=== PATIENT | female | born 1930 | race Caucasian/White ===

== ENCOUNTER → 2016-07-24 | Outpatient (REF) | payer MEDICARE ==
[~2016-07-24] MED LIST: /PANT40TA; /SUCR1TA; /ZOLP6ER; AMBIEN CR; NORV5TAB; PAXI20TA
== END ==
LOC: M LAB REF 12:24
PROVIDERS: ATTEND Nurse Practitioner Family
DX: N76.0 Acute vaginitis (principal)

== ENCOUNTER → 2016-09-03 | Outpatient (REF) | payer MEDICARE ==
[~2016-09-03] MED LIST changes: +AMLO2.5T PO; +PANT40TA2 PO; +PARO20TA3 PO
== END ==
LOC: M SMT 12:56
PROVIDERS: ATTEND Nurse Practitioner Women's Health
DX: R32 Unspecified urinary incontinence (principal)
CPT/HCPCS: 51798; 81001; 87086; G0463

== ENCOUNTER → 2016-10-09 | Outpatient (REF) | payer MEDICARE | LOC: M LAB REF 13:22 | PROVIDERS: ATTEND Nurse Practitioner Adult Health | DX: R30.0 Dysuria (principal) ==

== ENCOUNTER → 2016-10-23 | Outpatient (REF) | payer MEDICARE | LOC: M LAB REF 18:35 | PROVIDERS: ATTEND Nurse Practitioner Adult Health | DX: R30.0 Dysuria (principal); N81.10 Cystocele, unspecified ==

== ENCOUNTER → 2016-11-03 | Outpatient (REF) | payer MEDICARE | LOC: M SMT 15:20 | PROVIDERS: ATTEND Urology | DX: N39.0 Urinary tract infection, site not specified (principal); R82.8 Abnormal findings on cytological and histological examination of urine; R35.0 Frequency of micturition | CPT/HCPCS: 87086; G0463 ==

== ENCOUNTER → 2016-12-09 | Outpatient (CLI) | payer MEDICARE ==
[2016-12-09 10:37] LABS: MEAN CORPUSCULAR HEMOGLOBIN 31.9 pg (27.0-33.0); MEAN CORPUSCULAR HGB CONC 32.9 g/dl (32.0-36.5); MEAN CORPUSCULAR VOLUME 97.1 fl (80.0-96.0); RED CELL DISTRIBUTION WIDTH 13.7 % (11.5-14.5); WHITE BLOOD COUNT 7.2 10^3/uL (4.0-10.0)
--- NOTE | 2016-12-09 10:48 | REP ---
Chest two views HISTORY: Bladder tumor Comparison: 07/02/2011 The lungs are clear. The heart is normal in size. The pulmonary vasculature is normal in appearance. The bony structure is intact. IMPRESSION: No acute disease. Signed by Gopal Khan MD 12/09/2016 10:39 A
[2016-12-09 10:55] LABS: INR 1.02
[2016-12-09 11:10] LABS: CALCIUM LEVEL 9.6 MG/DL (8.8-10.2); CREATININE FOR GFR 1.17 MG/DL (0.55-1.02); GLOMERULAR FILTRATION RATE 46.7 (>32); POTASSIUM SERUM 4.3 MEQ/L (3.5-5.1)
--- NOTE | 2016-12-10 16:10 | ECGEPIP ---
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 Electronically Signed On 12-10-2016 16:10:19 EDT by Beto Avery
== END ==
LOC: M LAB 09:38
PROVIDERS: ATTEND Urology
DX: D49.4 Neoplasm of unspecified behavior of bladder (principal); Z79.899 Other long term (current) drug therapy; Z01.818 Encounter for other preprocedural examination; R00.1 Bradycardia, unspecified

== ENCOUNTER → 2016-12-11 | Outpatient (REF) | payer MEDICARE | LOC: M SMT 12:52 | PROVIDERS: ATTEND Urology | DX: N39.0 Urinary tract infection, site not specified (principal) ==

== ENCOUNTER 2016-12-15 05:41 | Day surgery (SDC) | payer MEDICARE ==
[~2016-12-15] VITALS: Ht 152.4 cm; Wt 55.8 kg
[2016-12-15] MEDS ORDERED: LR 1,000 ML IV ONE (06:30)
[2016-12-15] MEDS ORDERED: LIDOCAINE 1% MDV 20ML VIAL SQ PRN (06:30)
[2016-12-15] MEDS ORDERED: PROPOFOL 200 MG/20 ML VIAL As Ordered ONE (07:43)
[2016-12-15] MEDS ORDERED: fentaNYL 100 MCG/2 ML INJECTION (J3010) As Ordered ONE (07:43)
[2016-12-15] MEDS ORDERED: LIDOCAINE 2% INJ 100 MG/5 ML SDV (FOR ANES.) As Ordered ONE (07:43)
[2016-12-15] MEDS ORDERED: ROCURONIUM BROMIDE 50 MG/5 ML VIAL/SYRINGE As Ordered ONE (07:43)
[2016-12-15] MEDS ORDERED: ePHEDrine SULFATE 25 MG/5 ML(5MG/ML) SYRINGE As Ordered ONE (07:44)
[2016-12-15] MEDS ORDERED: SUGAMMADEX SODIUM 500 MG/5 ML VIAL (BRIDION) As Ordered ONE (07:56)
--- NOTE | 2016-12-15 08:21 | RO ---
DATE OF PROCEDURE: 12/15/2016 PREPROCEDURE DIAGNOSIS: Bladder tumor. POSTPROCEDURE DIAGNOSIS: Bladder tumor. PROCEDURE: Cystoscopy, transurethral resection of bladder tumor (less than 2 cm). SURGEON: Dr. 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 ANESTHESIA: General. OPERATIVE INDICATIONS: This is an 86-year-old female who was recently found to have a small papillary tumor right above the level of the right ureteral orifice on office cystoscopy. It was recommended she be brought to the operating room today for the above listed procedures. DESCRIPTION OF PROCEDURE: The patient was brought to the operating room where general anesthesia was induced. Prophylactic antibiotics were infused. She was then placed in the dorsal lithotomy position and a bimanual pelvic examination under anesthesia was performed. It was negative for palpable bladder masses. The bladder was freely mobile. The patient was then prepped and draped in the usual sterile fashion. A rigid cystoscope was inserted into the urethral meatus and advanced to the bladder. The bladder was then thoroughly examined. The only abnormality seen was a small papillary tumor right over the right ureteral orifice. The cystoscope was then traded out for a resectoscope. I then resected the bladder tumor and made sure to get cuts deep enough into the bladder wall to contain muscle. The tumor was then removed and sent off the table and sent for pathologic analysis. I then cauterized the area of resection and there was good hemostasis obtained. I then examined the right ureteral orifice for several minutes and the right ureteral orifice continued to efflux urine normally. I therefore decided not to place a stent. The patient's bladder was then emptied of all fluid and this marked the conclusion of the procedure. The patient was then taken out of dorsal lithotomy position, awakened from anesthesia and transported to the recovery room in stable condition. Estimated blood loss: 0 mL. Complications: None. Specimen: Bladder tumor. Plan: The patient will follow up in the clinic in about one week to go over pathology results.
[2016-12-15] MEDS ORDERED: PERCOCET 5MG/325MG TAB PO PRN (08:30)
[2016-12-15] MEDS ORDERED: MEPERIDINE INJ 25 MG/ML VIAL (J2175) IV PRN (08:30)
[2016-12-15] MEDS ORDERED: ACETAMINOPHEN TAB 650MG DOSE (2X325MG) PO PRN (08:30)
[2016-12-15] MEDS ORDERED: ONDANSETRON 4MG/2ML VIAL (J2405) IV PRN (08:30)
[2016-12-15] MEDS ORDERED: METOCLOPRAMIDE INJ 10MG/2ML VIAL (J2765) IV PRN (08:30)
[2016-12-15] MEDS ORDERED: fentaNYL 100 MCG/2 ML INJECTION (J3010) IV PRN (08:30)
[2016-12-15] MEDS ORDERED: LR 1,000 ML IV SCH (08:30)
[2016-12-15 09:25] VITALS: BP 179/79
== END 2016-12-15 09:50 | disposition home or self-care (01) ==
LOC: M SDC 05:41
PROVIDERS: ATTEND Urology
DX: C67.9 Malignant neoplasm of bladder, unspecified (principal); I12.9 Hypertensive chronic kidney disease with stage 1 through stage 4 chronic kidney disease, or unspecified chronic kidney disease; K21.9 Gastro-esophageal reflux disease without esophagitis; F32.9 Major depressive disorder, single episode, unspecified; M81.0 Age-related osteoporosis without current pathological fracture; K57.30 Diverticulosis of large intestine without perforation or abscess without bleeding; N18.3 Chronic kidney disease, stage 3 (moderate); E78.00 Pure hypercholesterolemia, unspecified; E55.9 Vitamin D deficiency, unspecified; E64.9 Sequelae of unspecified nutritional deficiency; I44.30 Unspecified atrioventricular block; G25.81 Restless legs syndrome; Z88.8 Allergy status to other drugs, medicaments and biological substances; Z79.899 Other long term (current) drug therapy; Z86.14 Personal history of Methicillin resistant Staphylococcus aureus infection; Z87.891 Personal history of nicotine dependence
CPT/HCPCS: 52234; 88305; J3010

== ENCOUNTER → 2017-03-24 | Outpatient (REF) | payer MEDICARE | LOC: M SMT 12:44 | DX: C67.9 Malignant neoplasm of bladder, unspecified (principal) | CPT/HCPCS: 88108 ==

== ENCOUNTER → 2017-05-29 | Outpatient (REF) | payer MEDICARE ==
[2017-05-29 12:36] LABS: AMYLASE 73 U/L (25-115)
[2017-05-29 12:36] LABS: LIPASE 238 U/L (73-393)
== END ==
LOC: M LAB REF 11:59
DX: R10.13 Epigastric pain (principal); R10.12 Left upper quadrant pain

== ENCOUNTER → 2017-06-23 | Outpatient (REF) | payer MEDICARE | LOC: M SMT 13:15 | DX: C67.9 Malignant neoplasm of bladder, unspecified (principal) | CPT/HCPCS: 88108 ==

== ENCOUNTER → 2017-10-27 | Outpatient (REF) | payer MEDICARE | LOC: M SMT 17:21 | DX: C67.9 Malignant neoplasm of bladder, unspecified (principal) | CPT/HCPCS: 88108 ==

== ENCOUNTER → 2017-11-03 | Outpatient (CLI) | payer MEDICARE | LOC: M LRY 09:58 | DX: M50.322 Other cervical disc degeneration at C5-C6 level (principal); M50.323 Other cervical disc degeneration at C6-C7 level | CPT/HCPCS: G0463 ==

== ENCOUNTER → 2017-11-12 | Outpatient (CLI) | payer MEDICARE | LOC: M RAD 10:29 | DX: M50.221 Other cervical disc displacement at C4-C5 level (principal); M50.21 Other cervical disc displacement, high cervical region; M50.222 Other cervical disc displacement at C5-C6 level; M50.223 Other cervical disc displacement at C6-C7 level; M47.812 Spondylosis without myelopathy or radiculopathy, cervical region | CPT/HCPCS: 72141 ==

== ENCOUNTER → 2018-02-02 | Outpatient (REF) | payer MEDICARE ==
[2018-02-03 15:16] LABS: FERRITIN 136 NG/ML (8-252); IRON (FE) 59 UG/DL (50-170); PERCENT SATURATION 18.8 % (13.2-45.0); TOTAL IRON BINDING CAPACITY 314 UG/DL (250-450)
== END ==
LOC: M LAB REF 12:09
DX: N18.9 Chronic kidney disease, unspecified (principal); D63.1 Anemia in chronic kidney disease
CPT/HCPCS: 83550

== ENCOUNTER → 2018-05-03 | Outpatient (REF) | payer MEDICARE ==
[~2018-05-03] MED LIST changes: -AMLO2.5T PO; +AMLO2.5T3 PO; -PANT40TA2 PO; +PANT40TA3 PO
== END ==
LOC: M SMT 13:01
PROVIDERS: ATTEND Urology
DX: C67.9 Malignant neoplasm of bladder, unspecified (principal)

== ENCOUNTER → 2018-05-05 | Outpatient (CLI) | payer MEDICARE ==
[~2018-05-05] MED LIST changes: +ISOVUE-370 76% 100ML VIAL (Q9967) As Ordered ONE
--- NOTE | 2018-05-05 09:55 | REP ---
CT NECK WITH CONTRAST: HISTORY: Right mandible mass. CONTRAST: Isovue 370, 75 mL. The naso-, ayesha-, and hypopharynx, larynx and subglottic trachea are normal in appearance. The salivary and thyroid glands are normal in size and density. Small lymph nodes less than 1 cm in size are present in the internal jugular chains, posterior triangles and submandibular areas. Atherosclerotic calcification is present at the carotid bifurcations. Degenerative change is present in the cervical spine. The lung apices are clear. The visualized sinuses are clear. IMPRESSION: There is no neck mass or adenopathy. Electronically Signed by Gopal Khan MD 05/05/2018 09:56 A
== END ==
LOC: M RAD 08:46
PROVIDERS: ATTEND Nurse Practitioner Adult Health
DX: R22.0 Localized swelling, mass and lump, head (principal)
CPT/HCPCS: 70491; Q9967

== ENCOUNTER → 2018-11-01 | Outpatient (REF) | payer MEDICARE ==
[~2018-11-01] MED LIST changes: -/PANT40TA; -/SUCR1TA; -ISOVUE-370 76% 100ML VIAL (Q9967) As Ordered ONE; +PROT1TAB2; +SUCR1TAB56
== END ==
LOC: M SMT 13:10
PROVIDERS: ATTEND Urology
DX: C67.9 Malignant neoplasm of bladder, unspecified (principal)

== ENCOUNTER → 2019-01-27 | Outpatient (REF) | payer MEDICARE | LOC: M LAB REF 17:38 | PROVIDERS: ATTEND Nurse Practitioner Adult Health | DX: R30.0 Dysuria (principal) ==

== ENCOUNTER → 2019-08-10 | Outpatient (REF) | payer MEDICARE | LOC: M LAB REF 17:05 | PROVIDERS: ATTEND Nurse Practitioner Adult Health | DX: N18.9 Chronic kidney disease, unspecified (principal); D63.1 Anemia in chronic kidney disease ==

== ENCOUNTER → 2019-11-14 | Outpatient (REF) | payer MEDICARE ==
[~2019-11-14] MED LIST changes: +AMLO1TAB24 PO; +AMLO1TAB25 PO; +ASPI81CH33 PO; +ASPI81TAEC PO; +CLOP75TA2 PO; +PANT40TA29 PO; -PANT40TA3 PO; +SELF1KIT MC; +SIMV20TA22 PO
== END ==
LOC: M SMT 12:51
PROVIDERS: ATTEND Urology
DX: C67.9 Malignant neoplasm of bladder, unspecified (principal)

== ENCOUNTER 2019-12-20 11:19 | Inpatient (IN) | payer MEDICARE ==
[~2019-12-20] VITALS: Ht 152.4 cm; Wt 62.6 kg
[~2019-12-20 11:19] MED LIST changes: -AMLO1TAB24 PO; -AMLO1TAB25 PO; -ASPI81CH33 PO; -ASPI81TAEC PO; -CLOP75TA2 PO; -SELF1KIT MC; -SIMV20TA22 PO
--- NOTE | 2019-12-20 11:48 | REP ---
INDICATION: CVA. COMPARISON: Comparison chest x-ray December 09, 2016.. TECHNIQUE: Upright AP portable view. FINDINGS: The lungs are well inflated and clear. Pleural angles are sharp. Heart is not enlarged. The aorta is calcific and somewhat tortuous. Pulmonary vasculature is not increased. No significant bony abnormality. IMPRESSION: No active disease. <Electronically signed by Bassem Christianson > 12/20/19 [id number]
--- NOTE | 2019-12-20 11:58 | REP ---
INDICATION: CVA - Nursing interventions must not delay CT. COMPARISON: Comparison CT study July 04, 2007.. TECHNIQUE: Helical scanning is acquired. 5 mm axial images were reformatted. Coronal MPR images were generated. FINDINGS: Bone window settings demonstrate an intact bony calvarium. There is no evidence of skull fracture or incidental bony calvarial lesion. The visualized paranasal sinuses appear clear. No intraorbital abnormality is seen. On soft tissue window setting images; the lateral, third, and fourth ventricles are prominent in size but normal in position. There is moderate generalized volume loss. Vascular calcification is noted at the skull base involving distal internal carotid arteries bilaterally.. Siu-white differentiation pattern is normal above and below the tentorium. There are is no evidence of intracranial hemorrhage. No mass or acute infarction is seen. There is evidence of a small old lacunar infarct in the left basal ganglia. Small vessel atherosclerotic changes are noted in the periventricular white matter. There is no evidence of intracranial hemorrhage. No midline shift is seen. IMPRESSION: Generalized volume loss and small vessel changes. Vascular calcification is noted. Old appearing lacunar infarct in the left basal ganglia. Otherwise negative.. <Electronically signed by Bassem Christianson > 12/20/19 [id number]
[2019-12-20 12:15] LABS: BASO % 0.3 % (0.0-1.0); EOS # 0.1 10^3/uL (0.0-0.5); EOS % 1.2 % (0.0-3.0); HEMOGLOBIN 11.3 g/dl (12.0-15.5); LYMPH # 1.9 10^3/uL (1.5-5.0); LYMPH % 26.9 % (24.0-44.0); MEAN CORPUSCULAR HEMOGLOBIN 32.4 pg (27.0-33.0); MEAN CORPUSCULAR HGB CONC 32.3 g/dl (32.0-36.5); MEAN CORPUSCULAR VOLUME 100.3 fl (80.0-96.0); MONO # 0.6 10^3/uL (0.0-0.8); MONO % 8.5 % (0.0-5.0); NEUTROPHILS # 4.3 10^3/uL (1.5-8.5); NEUTROPHILS % 62.8 % (36.0-66.0); PLATELET COUNT, AUTOMATED 290 10^3/uL (150-450); RED BLOOD COUNT 3.49 10^6/uL (4.00-5.40); WHITE BLOOD COUNT 6.9 10^3/uL (4.0-10.0)
[2019-12-20 12:39] LABS: CALCIUM LEVEL 9.5 MG/DL (8.8-10.2); CREATININE FOR GFR 0.96 MG/DL (0.55-1.30); GLOMERULAR FILTRATION RATE 58.3 (>32); POTASSIUM SERUM 3.9 MEQ/L (3.5-5.1)
--- NOTE | 2019-12-20 14:28 | ECGEPIP ---
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
--- NOTE | 2019-12-20 14:56 | REP ---
INDICATION: L-face, LUE numbness. COMPARISON: Comparison cervical spine radiographs are from November 03, 2017.. TECHNIQUE: Sagittal and axial T1 and T2-weighted scans are acquired in the usual fashion with and without fat saturation. Sequences include spin echo, turbo spin-echo, and STIR imaging sequences. FINDINGS: There is straightening of the normal cervical lordosis. No bony destructive lesion is seen. Vertebral body heights are preserved. There is degenerative spondylosis of the cervical spine again noted most pronounced at C5-6 level. STIR images demonstrate marrow edema in the C5 and C 6 vertebral bodies on either side of this disc. There is minimal marrow edema on either side at the C3-4 disc. Signal intensity is otherwise normal in the vertebral bodies. The cervical cord is normal in course, caliber and is signal intensity on T1 and T2 weighted scans. Craniocervical junction is unremarkable. At C3-4, there is minimal posterior osteophytic ridging. No thecal sac compression. At C4-5, there is a small central focal disc protrusion and diffuse disc bulging which indents the ventral margin of the thecal sac. No cord compression is seen. No neural foraminal narrowing is seen. There is some facet hypertrophy. At C5-C6, there is posterior osteophytic ridging and diffuse disc bulging which flattens the ventral margin of the cord and effaces the ventral margin thecal sac. There is central canal stenosis due to this and ligamentum flavum hypertrophy at the C5-6 level. The midline AP dimension of the thecal sac at this level is 6.6 mm. There is bilateral neural foraminal narrowing, left greater than right. At C6-C7, there is mild diffuse disc bulging. There is uncovertebral spurring on the left producing mild foraminal narrowing. At C7-T1, there is no significant finding. IMPRESSION: The dominant abnormality is central canal stenosis and bilateral uncovertebral spurring and foraminal narrowing at C5-6 due to degenerative disc disease. The foraminal narrowing is worse on the left. There is degenerative spondylosis at C 6 7 and C4-5 as well. A small central focal disc protrusion is present at C4-5. <Electronically signed by Bassem Christianson > 12/20/19 [id number]
--- NOTE | 2019-12-20 15:03 | REP ---
INDICATION: L-face, LUE numbness. COMPARISON: None. TECHNIQUE: 3-D [id number] MR angiography of the brain is acquired in the usual fashion and maximal intensity projection images were generated in rotational format about the vertical and horizontal axes. In addition, source axial T1-weighted images are viewed in cine mode. FINDINGS: The distal vertebral arteries are patent and codominant. Basilar artery is widely patent. Posterior cerebral and superior cerebellar vessels are unremarkable bilaterally. The distal internal carotid arteries appear intact. There is a 3 mm humphreys aneurysm projecting inferiorly from the distal A1 segment of the anterior cerebral artery on the right. On the left, there is a 2 mm humphreys aneurysm projecting anteriorly from the proximal M1 segment of the middle cerebral artery. No other humphreys aneurysm is seen. No evidence of arteriovenous malformation or vessel cutoff. 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 These measure 2 and 3 mm in greatest diameter respectively. Otherwise negative MR angiography of the brain.. <Electronically signed by Bassem Christianson > 12/20/19 0001
--- NOTE | 2019-12-20 15:06 | REP ---
INDICATION: L-face, LUE numbness. COMPARISON: Head CT from earlier this date.. TECHNIQUE: Axial and sagittal imaging planes are utilized for T1 and T2-weighted scans. Sequences include spin-echo, fast spin echo, FLAIR, and diffusion weighted sequences. FINDINGS: No bony calvarial lesion is seen. Craniocervical junction and upper cervical cord are normal in appearance. There is no MR evidence of significant paranasal sinus disease. No intraorbital abnormality is seen. There is generalized volume loss. There are extensive periventricular and subcortical white matter T2 hyperintensities consistent with small vessel atherosclerotic changes. There is no evidence of intracranial hemorrhage. No extra-axial fluid collection or mass lesion is seen. Diffusion weighted scans demonstrate a tiny punctate focus of restricted diffusion in the right thalamus posterolaterally consistent with a acute lacunar infarct. No other area of restricted diffusion is seen. Exam is otherwise unremarkable. IMPRESSION: There is a focus of restricted diffusion in the right posterolateral thalamus consistent with an acute lacunar infarct in that location. Generalized volume loss and small vessel changes are noted. There is no evidence of intracranial hemorrhage.. <Electronically signed by Bassem Christianson > 12/20/19 [id number]
[2019-12-20] MEDS ORDERED: ASPIRIN 81 MG ENTERIC TAB PO ONE (16:00)
[2019-12-20] MEDS ORDERED: ASPI81CH33 PO (16:08)
[2019-12-20] MEDS ORDERED: AMLO1TAB24 PO (16:08)
[2019-12-20] MEDS ORDERED: ENOXAPARIN 30MG/0.3ML SYRINGE (J1650 PER 10MG) SC ONE (17:00)
[2019-12-20 17:20] VITALS: BP 178/70
[2019-12-20] MEDS ORDERED: SLF 3 ML SYR IV PRN (18:00)
[2019-12-20 18:23] VITALS: BP 196/70
--- NOTE | 2019-12-20 18:44 | HPEPDOC ---
[facility] Medical History & Physical Date of Admission Dec 20, 2019 Date of Service: Dec 20, 2019 History and Physical CHIEF COMPLAINT: 2 days left UPPE R LIP and left HAND numbness HISTORY OF PRESENT ILLNESS: 89 y/o female with history of 10 pack years of cigarette smoking, quit over 10 years ago, was in her usual state of health until 2 days ago when she noticed her left hand feeling numb which happens occasionally and goes away. This progressed on to all day today with involvement of the rest of the lateral arm as well as her left upper lip. She denied any dysarthria, dysphagia, or motor weakness of b/l ue and LE, or gait abnormalities. No medications were taken at home. No c/o difficulty understanding or selecting words. no c/o diplopia, blurred vision, and denies palpitations, chest pain, dizziness, or lighth eadedness. She denies any history of atrial fibrillation or hypercoagulable state. In the ER, MRI Brain: acute right posterolateral thalamic CVA, EKG: sinus Jose, sbp 140 on arrival, but sbp>180 at 6pm. Hospitalist was asked to admit the patient for acute ischemic cva. 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 Castillo), macular degeneration, recurrent UTI with Enterococcus faecalis, Klebsiella pneumoniae, klebsiella oxytoca, diverticulosis, diverticulitis, urine incontinence,cystocele. 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 Castillo),appendectomy, diverticulitis SOCIAL HISTORY:quit smoking >15years ago. no etoh or drug use,retired FAMILY HISTORY: father cva mother son lung cancer ALLERGIES: Please see below. REVIEW OF SYSTEMS:10 point ROS negative aside from (+) findings on HPI HOME MEDICATIONS: Please see below. PHYSICAL EXAMINATION: VITAL SIGNS: see below GENERAL APPEARANCE: AAOx 3. speech is fluent . HEENT: PERRL EOMI no cervical LAD thyromegaly or JVD. no pharyngeal erythema. no facial asymmetry tongue and uvula midline CARDIOVASCULAR: S1S2 sinus bradycardia LUNGS: CTAB AEBE ABDOMEN:+ bs x 4quadrants NT ND soft no HSM no abdominal bruit EXTREMITIES:(-) edema, cyanosis, or clubbing NEUROLOGICAL:AAO x 3, speech is fluent. no facial asymmetry, no pronator drift. decreased sensation in left hand, arm, and left upper lip . motor 5/5 strength x 4 extremities. LABORATORY DATA: See below. EKG: SINUS BRADYCARDIA 57 INTRAVENTRICULAR CONDUCTION DELAY SIMILAR 12/09/16 Electronically Signed on 12-20-2019 14:27:54 EDT by Fannie Huynh IMAGING: INDICATION: CVA - Nursing interventions must not delay CT. COMPARISON: Comparison CT study July 04, 2007.. TECHNIQUE: Helical scanning is acquired. 5 mm axial images were reformatted. Coronal MPR images were generated. FINDINGS: Bone window settings demonstrate an intact bony calvarium. There is no evidence of skull fracture or incidental bony calvarial lesion. The visualized paranasal sinuses appear clear. No intraorbital abnormality is seen. On soft tissue window se tting images; the lateral, third, and fourth ventricles are prominent in size but normal in position. There is moderate generalized volume loss. Vascular calcification is noted at the skull base involving distal internal carotid arteries bilaterally.. Siu-white differentiation pattern is normal above and below the tentorium. There are is no evidence of intracranial hemorrhage. No mass or acute infarction is seen. There is evidence of a small old lacunar infarct in the left basal ganglia. Small vessel atherosclerotic changes are noted in the periventricular white matter. There is no evidence of intracranial hemorrhage. No midline shift is seen. IMPRESSION: Generalized volume loss and small vessel changes. Vascular calcification is noted. Old appearing lacunar infarct in the left basal ganglia. Otherwise negative.. <Electronically signed by [employer] > 12/20/19 1154 INDICATION: CVA. COMPARISON: Comparison chest x-ray December 09, 2016.. TECHNIQUE: Upright AP portable view. FINDINGS: The lungs are well inflated and clear. Pleural angles are sharp. Heart is not enlarged. The aorta is calcific and somewhat tortuous. Pulmonary vasculature is not increased. No significant bony abnormality. IMPRESSION: No active disease. <Electronically signed by [employer] > 12/20/19 1144 INDICATION: L-face, LUE numbness. COMPARISON: Comparison cervical spine radiographs are from November 03, 2017.. TECHNIQUE: Sagittal and axial T1 and T2-weighted scans are acquired in the usual fashion with and without fat saturation. Sequences include spin echo, turbo spin-echo, and STIR imaging sequences. FINDINGS: There is straightening of the normal cervical lordosis. No bony destructive lesion is seen. Vertebral body heights are preserved. There is degenerative spondylosis of the cervical spine again noted most pronounced at C5-6 level. STIR images demonstrate marrow edema in the C5 and C 6 vertebral bodies on either side of this disc. There is minimal marrow edema on either side at the C3-4 disc. Signal intensity is otherwise normal in the vertebral bodies. The cervical cord is normal in course, caliber and is signal intensity on T1 and T2 weighted scans. Craniocervical junction is unremarkable. At C3-4, there is minimal posterior osteophytic ridging. No thecal sac compression. At C4-5, there is a small central focal disc protrusion and diffuse disc bulging which indents the ventral margin of the thecal sac. No cord compression is seen. No neural foraminal narrowing is seen. There is some facet hypertrophy. At C5-C6, there is posterior osteophytic ridging and diffuse disc bulging which flattens the ventral margin of the cord and effaces the ventral margin thecal sac. There is central canal stenosis due to this and ligamentum flavum hypertrophy at the C5-6 level. The midline AP dimension of the thecal sac at this level is 6.6 mm. There is bilateral neural foraminal narrowing, left greater than right. At C6-C7, there is mild diffuse disc bulging. There is uncovertebral spurring on the left producing mild foraminal narrowing. At C7-T1, there is no significant finding. IMPRESSION: The dominant abnormality is central canal stenosis and bilateral uncovertebral spurring and foraminal narrowing at C5-6 due to degenerative disc disease. The foraminal narrowing is worse on the left. There is degenerative spondylosis at C 6 7 and C4-5 as well. A small central focal disc protrusion is present at C4-5. <Electronically signed by Bassem Christianson > 12/20/19 5337 INDICATION: L-face, LUE numbness. COMPARISON: None. TECHNIQUE: 3-D [id number] MR angiography of the brain is acquired in the usual fashion and maximal intensity projection images were generated in rotational format about the vertical and horizontal axes. In addition, source axial T1-weighted images are viewed in cine mode. FINDINGS: The distal vertebral arteries are patent and codominant. Basilar artery is widely patent. Posterior cerebral and superior cerebellar vessels are unremarkable bilaterally. The distal internal carotid arteries appear intact. There is a 3 mm humphreys aneurysm projecting inferiorly from the distal A1 segment of the anterior cerebral artery on the right. On the left, there is a 2 mm humphreys aneurysm projecting anteriorly from the proximal M1 segment of the middle cerebral artery. No other humphreys aneurysm is seen. No evidence of arteriovenous malformation or vessel cutoff. 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 These measure 2 and 3 mm in greatest diameter respectively. Otherwise negative MR angiography of the brain.. <Electronically signed by Bassem Christianson > 12/20/19 [id number] INDICATION: L-face, LUE numbness. COMPARISON: Head CT from earlier this date.. TECHNIQUE: Axial and sagittal imaging planes are utilized for T1 and T2-weighted scans. Sequences include spin-echo, fast spin echo, FLAIR, and diffusion weighted sequences. FINDINGS: No bony calvarial lesion is seen. Craniocervical junction and upper cervical cord are normal in appearance. There is no MR evidence of significant paranasal sinus disease. No intraorbital abnormality is seen. There is generalized volume loss. There are extensive periventricular and subco rtical white matter T2 hyperintensities consistent with small vessel atherosclerotic changes. There is no evidence of intracranial hemorrhage. No extra-axial fluid collection or mass lesion is seen. Diffusion weighted scans demonstrate a tiny punctate focus of restricted diffusion in the right thalamus posterolaterally consistent with a acute lacunar infarct. No other area of restricted diffusion is seen. Exam is otherwise unremarkable. IMPRESSION: There is a focus of restricted diffusion in the right posterolateral thalamus consistent with an acute lacunar infarct in that location. Generalized volume loss and small vessel changes are noted. There is no evidence of intracranial hemor rhage.. <Electronically signed by Bassem Christianson > 12/20/19 4743 MICROBIOLOGY: Please see below. ASSESSMENT: 89 y/o female with history of 10 pack years of cigarette smoking, quit over 10 years ago, was in her usual state of health until 2 days ago when she noticed her left hand feeling numb which happens occasionally and goes away. This progressed on to all day today with involvement of the rest of the lateral arm as well as her left upper lip. She denied any dysarthria, dysphagia, or motor weakness of b/l ue and LE, or gait abnormalities. No medications were taken at home. No c/o difficulty understanding or selecting words. no c/o diplopia, blurred vision, and denies palpitations, chest pain, dizziness, or lightheadedness. She denies any history of atrial fibrillation or hypercoagul able state. In the ER, MRI Brain: acute right posterolateral thalamic CVA, EKG: sinus Jose, sbp 140 on arrival, but sbp>180 at 6pm. Hospitalist was asked to admit the patient for acute ischemic cva. PROBLEMS: Acute ischemic right posterolateral thalamic CVA Hypertensive Urgency Incidental finding 2 small humphreys aneurysms, 2mm and 3mm central canal stenosis with foraminal narrowing at C5-6 degenerative spondylosis at C 6 7 C4-5 disc protrusion is present at C4-5. PLAN: admit as inpatient for 2midnights, telemetry, echo, carotid dopplers, Dr. Zabala, neurologist consulted. ASA, zocor. check lipid profile and liver profile in am. neurochecks q4hrs. ARU screen pt/ot. assisted ambulation with fall precautions. resume home dose of norvasc and lisinopril with holding parameters, serial bp m onitoring.allow permissive hypertension for the next 24-36 hrs. lovenox for DVT prophylaxis renally dosed. Vital Signs Vital Signs Date Time Temp Pulse Resp B/P (MAP) Pulse Ox O2 Delivery O2 Flow Rate FiO2 12/20/19 14:34 57 155/77 (103) 99 Room Air 12/20/19 12:54 18 12/20/19 11:31 99.5 Laboratory Data Labs 24H Laboratory Tests 2 12/20/19 11:32: Immature Granulocyte % (Auto) 0.3, Neutrophils (%) (Auto) 62.8, Lymphocytes (%) (Auto) 26.9, Monocytes (%) (Auto) 8.5H, Eosinophils (%) (Auto) 1.2, Basophils (%) (Auto) 0.3, Neutrophils # (Auto) 4.3, Lymphocytes # (Auto) 1.9, Monocytes # (Auto) 0.6, Eosinophils # (Auto) 0.1, Basophils # (Auto) 0.0, Nucleated Red Blood Cells % (auto) 0.0, Anion Gap 7L, Glomerular Filtration Rate 58.3, Calcium Level 9.5 CBC/BMP Laboratory Tests 12/20/19 11:32 Home Medications Scheduled Amlodipine Besylate (Amlodipine Besylate) 5 Mg Tablet, 5 MG PO DAILY Pantoprazole Sodium (Pantoprazole Sodium) 40 Mg Tab, 40 MG PO DAILY Paroxetine HCl (Paroxetine HCl) 20 Mg Tab, 20 MG PO DAILY Scheduled PRN Aspirin (Aspirin) 81 Mg Tab.chew, 62 MG PO for NEURO SYMPTOMS Allergies Coded Allergies: citalopram (Verified Allergy, Intermediate, 12/20/19) diazepam (Verified Allergy, Intermediate, hallucinations, 12/20/19) A-FIB/CHADSVASC A-FIB History Current/History of A-Fib/PAF?: No Current PO Anticoag Therapy: No Age/Risk Factor Scoring CHADSVASC: CHADSVASC Response (Comments) Value Age Risk Factor Age >/= 75 years old 2 Gender Risk Factor Female 1 Hx of CHF No 0 Hx of HTN Yes 1 Hx of Stroke/TIA/or VTE No 0 Hx of Diabetes No 0 Hx of Vascular Disease No 0 Total 4 Treatment Treatment ordered: NONE LAURA KELLER MD Dec 20, 2019 15:56
[2019-12-20] MEDS ORDERED: lisinopriL 5 MG TAB PO ONE (18:45)
[2019-12-20] MEDS: hydrALAZINE 20MG/ML 1ML VIAL (J0360 PER 20MG) IV SCH (18:55)
[2019-12-20 20:00] VITALS: BP 164/79
[2019-12-20] MEDS ORDERED: ISOVUE-370 76% 100ML VIAL As Ordered ONE (20:41)
--- NOTE | 2019-12-20 21:05 | REPVR ---
PROCEDURE INFORMATION: Exam: CT Angiography Neck With Contrast Exam date and time: 12/20/2019 8:42 PM Age: 89 years old Clinical indication: Other: Worsening neuro changes TECHNIQUE: Imaging protocol: Computed tomography angiography of the neck with intravenous contrast. 3D rendering (Not supervised by radiologist): MIP and/or 3D reconstructed images were created by the technologist. Radiation optimization: All CT scans at this facility use at least one of these dose optimization techniques: automated exposure control; mA and/or kV adjustment per patient size (includes targeted exams where dose is matched to clinical indication); or iterative reconstruction. Contrast material: ISOVUE 370; Contrast volume: 100 ml; Contrast route: INTRAVENOUS (IV); COMPARISON: CT Neck with contrast 05/05/2018 9:21 AM FINDINGS: Right common carotid artery: No significant stenosis. No dissection or occlusion. Right internal carotid artery: Atherosclerotic plaques involving the proximal extracranial right internal carotid artery without evidence of hemodynamically significant stenosis (0% stenosis by NASCET criteria). Right external carotid artery: No occlusion or significant stenosis. Right vertebral artery: No significant stenosis. No dissection or occlusion. Left common carotid artery: No significant stenosis. No dissection or occlusion. Left internal carotid artery: Atherosclerotic plaques involving the proximal extracranial left internal carotid artery without evidence of hemodynamically significant stenosis (0% stenosis by NASCET criteria). Left external carotid artery: No occlusion or significant stenosis. Left vertebral artery: No significant stenosis. No dissection or occlusion. Thyroid: Subcentimeter low-density nodule in the right lobe of the thyroid gland, to which no further follow-up is necessary. Bones/joints: No acute fracture. Soft tissues: Unremarkable. IMPRESSION: 1. No occlusion or significant stenosis in the arteries of the neck. 2. Chronic findings, as above. COMMENTS: Consistent with the [employer]'s Incidental Findings Committee white paper (J Am Hoang Radiol 2015): In patients aged 35 years and older with an incidental thyroid nodule equal to or greater than 1.[address], MRI or extrathyroidal US, further evaluation with dedicated thyroid US is recommended for patients with normal life expectancy and without comorbidities. For smaller nodules without suspicious features, no further evaluation or follow up is recommended. REFERENCES: NASCET CRITERIA. The degree of internal carotid artery stenosis is based on NASCET criteria. Normal is no stenosis. Mild is less than 50% stenosis. Moderate is 50-69% stenosis. Severe is 70% to 99% stenosis. Total occlusion is no detectable patent lumen. Electronically signed by: Hipolito Sweeney On 12/20/2019 21:05:04 PM
--- NOTE | 2019-12-20 21:08 | REPVR ---
PROCEDURE INFORMATION: Exam: CT Angiography Head With Contrast Exam date and time: 12/20/2019 8:42 PM Age: 89 years old Clinical indication: Other: Worsening neuro changes TECHNIQUE: Imaging protocol: Computed tomography angiography of the head with intravenous contrast. 3D rendering (Not supervised by radiologist): MIP and/or 3D reconstructed images were created by the technologist. Radiation optimization: All CT scans at this facility use at least one of these dose optimization techniques: automated exposure control; mA and/or kV adjustment per patient size (includes targeted exams where dose is matched to clinical indication); or iterative reconstruction. Contrast material: ISOVUE 370; Contrast volume: 100 ml; Contrast route: INTRAVENOUS (IV); COMPARISON: MRA BRAIN W/O CONTRAST 12/20/2019 1:33 PM FINDINGS: ANTERIOR CIRCULATION: Right internal carotid artery: Intracranial segment is patent with no evidence of hemodynamically significant stenosis. No aneurysm. Right middle cerebral artery: No occlusion or significant stenosis. No aneurysm. Right anterior cerebral artery: Approximately 2.5 x 2 mm saccular aneurysm projecting inferiorly from the right A1-A2 junction. Right THOMAS is patent. Left internal carotid artery: Intracranial segment is patent with no evidence of hemodynamically significant stenosis. No aneurysm. Left middle cerebral artery: Approximately 1 x 2 mm saccular aneurysm projecting anteriorly from the proximal left M1. Left MCA branches are patent. Left anterior cerebral artery: Left THOMAS is patent. POSTERIOR CIRCULATION: Right vertebral artery: No occlusion or significant stenosis. No aneurysm. Left vertebral artery: No occlusion or significant stenosis. No aneurysm. Basilar artery: No occlusion or significant stenosis. No aneurysm. Right posterior cerebral artery: No occlusion or significant stenosis. No aneurysm. Left posterior cerebral artery: No occlusion or significant stenosis. No aneurysm. IMPRESSION: 1. No intracranial arterial occlusion or significant stenosis. 2. Redemonstration of approximately 2.5 x 2 mm saccular aneurysm projecting inferiorly from the right A1-A2 junction. 3. Redemonstration of approximately 1 x 2 mm saccular aneurysm projecting anteriorly from the proximal left M1. Electronically signed by: Hipolito Sweeney On 12/20/2019 21:08:40 PM
--- NOTE | 2019-12-20 21:30 | REPVR ---
PROCEDURE INFORMATION: Exam: US Duplex Bilateral Extracranial Arteries Exam date and time: 12/20/2019 9:10 PM Age: 89 years old Clinical indication: Numbness / parasthesia; Right; Additional info: CVA TECHNIQUE: Imaging protocol: Real-time Duplex ultrasound scan of the bilateral carotid and vertebral arteries combining sheth scale, color Doppler and spectral waveform analysis. Bilateral exam. COMPARISON: CT Head without contrast 12/20/2019 11:38 AM FINDINGS: Right common carotid artery: The proximal right common carotid artery demonstrates normal Doppler waveforms with velocity of 86 cm/s, mid velocity of 81 cm/s and distal velocity 106 cm/s. Right internal carotid artery: The proximal right internal carotid artery demonstrates normal Doppler waveforms with velocity of 88 cm/s, mid velocity of 114 cm/s and distal velocity of 88 cm/s. Right ICA/CCA ratio: The right ICA/CCA ratio is 1.08. Right external carotid artery: The right external carotid artery demonstrates normal Doppler waveforms with velocity of 100 cm/s. Right vertebral artery: The right vertebral artery demonstrates normal antegrade flow with velocity of 47 cm/s. Left common carotid artery: The left proximal common carotid artery velocity is 69 cm/s, mid velocity is 69 cm/s and distal velocity is 101 cm/s. Left internal carotid artery: The left proximal internal carotid artery demonstrates normal Doppler waveforms with velocity of 82 cm/s, mid velocity of 113 cm/s and distal velocity of 74 cm/s. Left ICA/CCA ratio: The left ICA/CCA ratio is 1.12. Left external carotid artery: The left external carotid artery demonstrates normal Doppler waveforms with velocity 118 cm/s. Left vertebral artery: The left vertebral artery demonstrates antegrade flow with velocity of 112 cm/s. Other findings: Minimal plaque is noted around the carotid bifurcations bilaterally. IMPRESSION: Minimal bilateral plaque at the bifurcations with no evidence of hemodynamically significant stenosis. REFERENCES: SRU CRITERIA. The degree of internal carotid artery stenosis is based on criteria defined by the Society of Radiologists in Ultrasound (SRU). Normal is no stenosis. Mild is less than 50% stenosis. Moderate is 50-69% stenosis. Severe is greater than 69% stenosis to near occlusion. Near occlusion is a markedly narrowed lumen. Total occlusion is no detectable patent lumen. Electronically signed by: El Jacob On 12/20/2019 21:30:37 PM
[2019-12-20] MEDS: SLF 3 ML SYR IV SCH (21:44)
[2019-12-20] MEDS: SIMVASTATIN 20 MG TAB PO SCH (21:44)
[2019-12-21] VITALS: BP 163/69
[2019-12-21 04:00] VITALS: BP 145/71
[2019-12-21 05:05] LABS: HEMOGLOBIN 11.3 g/dl (12.0-15.5); MEAN CORPUSCULAR HEMOGLOBIN 31.8 pg (27.0-33.0); MEAN CORPUSCULAR HGB CONC 32.3 g/dl (32.0-36.5); MEAN CORPUSCULAR VOLUME 98.6 fl (80.0-96.0); PLATELET COUNT, AUTOMATED 280 10^3/uL (150-450); RED BLOOD COUNT 3.55 10^6/uL (4.00-5.40); WHITE BLOOD COUNT 7.2 10^3/uL (4.0-10.0)
[2019-12-21 05:25] LABS: ALT/SGPT 13 U/L (12-78); BILIRUBIN,DIRECT < 0.1 MG/DL (0.0-0.2); BILIRUBIN,TOTAL 0.3 MG/DL (0.2-1.0); BLOOD UREA NITROGEN 15 MG/DL (7-18); CALCIUM LEVEL 9.4 MG/DL (8.8-10.2); CARBON DIOXIDE LEVEL 28 MEQ/L (21-32); CHLORIDE LEVEL 107 MEQ/L (98-107); CHOLESTEROL LEVEL 204 MG/DL (<200); CHOLESTEROL RISK RATIO 4.975 (<5); CREATININE FOR GFR 0.95 MG/DL (0.55-1.30); GLUCOSE, FASTING 97 MG/DL (70-100); HDL CHOLESTEROL 41 MG/DL (>40); LDL CHOLESTEROL 132 MG/DL (<100); NON-HDL-C 163 MG/DL; POTASSIUM SERUM 3.7 MEQ/L (3.5-5.1); SODIUM LEVEL 141 MEQ/L (136-145); TOTAL PROTEIN 7.5 GM/DL (6.4-8.2); TRIGLYCERIDES LEVEL 157 MG/DL (<150)
[2019-12-21] MEDS: hydrALAZINE 20MG/ML 1ML VIAL (J0360 PER 20MG) IV SCH ×3 (06:00→12:00)
[2019-12-21] MEDS: SLF 3 ML SYR IV SCH ×3 (06:06→21:57)
[2019-12-21 08:00] VITALS: BP 120/50
[2019-12-21] MEDS ORDERED: amLODIPine 5 MG TAB PO SCH (09:00)
[2019-12-21] MEDS: PANTOPRAZOLE 40MG TAB (PROTONIX) PO SCH (09:07)
[2019-12-21] MEDS: PARoxetine 20 MG TAB PO SCH (09:08)
[2019-12-21] MEDS: CLOPIDOGREL 75 MG TAB PO SCH (09:08)
[2019-12-21] MEDS: ASPIRIN 81 MG ENTERIC TAB PO SCH (09:08)
[2019-12-21] MEDS: ENOXAPARIN 30MG/0.3ML SYRINGE (J1650 PER 10MG) SC SCH (09:09)
--- NOTE | 2019-12-21 10:11 | IPNPDOC ---
Date Seen The patient was seen on 12/21/19. Progress Note SUBJECTIVE: c/o worsening numbness now involving lateral left face around cheeks, improved left hand numbness. no motor strength issues, and did well with physica therapy. no dysphagia, expressive aphasia, or facial droop. Tele: sinus. CTA Neck: no acute findings OBJECTIVE: PHYSICAL EXAM VITALS SEE BELOW GENERAL APPEARANCE: AAOx 3. speech is fluent . no drooling HEENT: PERRL EOMI no cervical LAD thyromegaly or JVD. no pharyngeal erythema. no facial asymmetry tongue and uvula midline decreased sensation along lateral face from mandible to caodaism. CARDIOVASCULAR: S1S2 sinus bradycardia LUNGS: CTAB AEBE ABDOMEN:+ bs x 4quadrants NT ND soft no HSM no abdominal bruit EXTREMITIES:(-) edema, cyanosis, or clubbing NEUROLOGICAL:AAO x 3, speech is fluent. no facial asymmetry, no pronator drift. decreased sensation in left hand, arm, and left upper lip . motor 5/5 strength x 4 extremities. LABORATORY DATA: See below. EKG: SINUS BRADYCARDIA 57 INTRAVENTRICULAR CONDUCTION DELAY SIMILAR 12/09/16 Electronically Signed on 12-20-2019 14:27:54 EDT by Fannie Huynh IMAGING: CT HEAD WITHOUT CONTRAST Generalized volume loss and small vessel changes. Vascular calcification is noted. Old appearing lacunar infarct in the left basal ganglia. Otherwise negative.. <Electronically signed by Bassem Christianson > 12/20/19 1154 CXR The lungs are well inflated and clear. Pleural angles are sharp. Heart is not enlarged. The aorta is calcific and somewhat tortuous. Pulmonary vasculature is not increased. No significant bony abnormality. IMPRESSION: No active disease. CT CERVICAL SPINE The dominant abnormality is central canal stenosis and bilateral uncovertebral spurring and foraminal narrowing at C5-6 due to degenerative disc disease. The foraminal narrowing is worse on the left. There is degenerative spondylosis at C 6 7 and C4-5 as well. A small central focal disc protrusion is present at C4-5. Electronically signed by Bassem Christianson > 12/20/19 1453 MRA BRAIN There are 2 small humphreys aneurysms as described above; involving the left M1 segment and the right A1 segment. These measure 2 and 3 mm in greatest diameter respectively. Otherwise negative MR angiography of the brain.. MRI BRAIN Axial and sagittal imaging planes are utilized for T1 and T2-weighted scans. Sequences include spin-echo, fast spin echo, FLAIR, and diffusion weighted sequences. There is a focus of restricted diffusion in the right posterolateral thalamus consistent with an acute lacunar infarct in that location. Generalized volume loss and small vessel changes are noted. There is no evidence of intracranial hemorrhage.. MICROBIOLOGY: Please see below. ASSESSMENT: 89 y/o female with history of 10 pack years of cigarette smoking, quit over 10 years ago, was in her usual state of health until 2 days ago when she noticed her left hand feeling numb which happens occasionally and goes away. This progressed on to all day today with involvement of the rest of the lateral arm as well as her left upper lip. She denied any dysarthria, dysphagia, or motor weakness of b/l ue and LE, or gait abnormalities. No medications were taken at home. No c/o difficulty understanding or selecting words. no c/o diplopia, blurred vision, and denies palpitations, chest pain, dizziness, or lightheadedness. She denies any history of atrial fibrillation or hypercoagulable state. In the ER, MRI Brain: acute right posterolateral thalamic CVA, EKG: sinus Jose, sbp 140 on arrival, but sbp>180 at 6pm. Hospitalist was asked to admit the patient for acute ischemic cva. PROBLEMS: Acute ischemic right posterolateral thalamic CVA Hypertensive Urgency Incidental finding 2 small humphreys aneurysms, 2mm and 3mm central canal stenosis with foraminal narrowing at C5-6 degenerative spondylosis at C 6 7 C4-5 disc protrusion is present at C4-5. PLAN: sinus on telemetry, echo ordered but not done yet, carotid arteries without hemodynamically significant stenosis. Dr. Zabala, neurologist consulted. currently on ASA, zocor.neurochecks q4hrs. did well with physical therapy and may go home once medically stable. resumed home dose of norvasc and lisinopril with holding parameters, serial bp monitoring.. lovenox for DVT prophylaxis renally dosed.await echo report and neuro clearance prior to dc home either tomorrow or later today depending on above. VS, I&O, 24H, Fishbone Vital Signs/I&O Vital Signs Date Time Temp Pulse Resp B/P (MAP) Pulse Ox O2 Delivery O2 Flow Rate FiO2 12/21/19 08:00 98.7 68 18 120/50 (73) 98 Room Air I&O- Last 24 Hours up to 6 AM 12/21/19 06:00 Intake Total 300 ml Output Total 0 ml Balance 300 ml Laboratory Data 24H LABS Laboratory Tests 2 12/20/19 11:32: Immature Granulocyte % (Auto) 0.3, Neutrophils (%) (Auto) 62.8, Lymphocytes (%) (Auto) 26.9, Monocytes (%) (Auto) 8.5H, Eosinophils (%) (Auto) 1.2, Basophils (%) (Auto) 0.3, Neutrophils # (Auto) 4.3, Lymphocytes # (Auto) 1.9, Monocytes # (Auto) 0.6, Eosinophils # (Auto) 0.1, Basophils # (Auto) 0.0, Nucleated Red Blood Cells % (auto) 0.0, Anion Gap 7L, Glomerular Filtration Rate 58.3, Calcium Level 9.5 12/21/19 04:38: Nucleated Red Blood Cells % (auto) 0.0, Anion Gap 6L, Glomerular Filtration Rate 59.0, Calcium Level 9.4, Total Bilirubin 0.3, Direct Bilirubin < 0.1, Aspartate Amino Transf (AST/SGOT) 16, Alanine Aminotransferase (ALT/SGPT) 13, Alkaline Phosphatase 74, Total Protein 7.5, Albumin 3.0L, Albumin/Globulin Ratio 0.7L, Triglycerides Level 157H, Total Cholesterol 204H, LDL Cholesterol 132H, Non-HDL Cholesterol (LDL + VLDL) 163, Total HDL Cholesterol 41, Cholesterol/HDL Ratio 4.975 CBC/BMP Laboratory Tests 12/20/19 11:32 12/21/19 04:38 LAURA KELLER MD Dec 21, 2019 10:11
[2019-12-21 12:00] VITALS: BP 154/72
[2019-12-21] MEDS ORDERED: CLOP75TA2 PO (13:12)
[2019-12-21] MEDS ORDERED: SIMV20TA22 PO (13:12)
[2019-12-21] MEDS ORDERED: ASPI81TAEC PO (13:12)
[2019-12-21] MEDS ORDERED: AMLO1TAB25 PO (13:17)
[2019-12-21] MEDS ORDERED: SELF1KIT MC (13:19)
[2019-12-21] MEDS ORDERED: amLODIPine 5 MG TAB PO ONE (14:00)
[2019-12-21 16:00] VITALS: BP 142/74
[2019-12-21 20:00] VITALS: BP 154/70
[2019-12-21] MEDS: SIMVASTATIN 20 MG TAB PO SCH (20:01)
[2019-12-22] VITALS: BP 118/58
[2019-12-22 04:00] VITALS: BP 110/56
[2019-12-22] MEDS: SLF 3 ML SYR IV SCH (05:03)
[2019-12-22 05:39] LABS: HEMATOCRIT 33.5 % (36.0-47.0); HEMOGLOBIN 10.8 g/dl (12.0-15.5); MEAN CORPUSCULAR HEMOGLOBIN 31.8 pg (27.0-33.0); MEAN CORPUSCULAR HGB CONC 32.2 g/dl (32.0-36.5); MEAN CORPUSCULAR VOLUME 98.5 fl (80.0-96.0); PLATELET COUNT, AUTOMATED 275 10^3/uL (150-450)
[2019-12-22 06:01] LABS: CALCIUM LEVEL 9.3 MG/DL (8.8-10.2); CREATININE FOR GFR 0.96 MG/DL (0.55-1.30); GLOMERULAR FILTRATION RATE 58.3 (>32); POTASSIUM SERUM 4.2 MEQ/L (3.5-5.1)
[2019-12-22 08:00] VITALS: BP 144/72
[2019-12-22] MEDS: PANTOPRAZOLE 40MG TAB (PROTONIX) PO SCH (08:55)
[2019-12-22] MEDS: ENOXAPARIN 30MG/0.3ML SYRINGE (J1650 PER 10MG) SC SCH (08:55)
[2019-12-22] MEDS: PARoxetine 20 MG TAB PO SCH (08:55)
[2019-12-22 08:56] VITALS: BP 144/72
[2019-12-22] MEDS: CLOPIDOGREL 75 MG TAB PO SCH (08:56)
[2019-12-22] MEDS: ASPIRIN 81 MG ENTERIC TAB PO SCH (08:57)
[2019-12-22] MEDS ORDERED: amLODIPine 10 MG TAB PO SCH (09:00)
--- NOTE | 2019-12-22 09:32 | CR ---
DATE OF CONSULTATION: 12/21/2019 REFERRING PHYSICIAN: Dr. Herron REASON FOR CONSULTATION: Left-sided face, lip, and hand numbness. HISTORY OF PRESENT ILLNESS: The patient is an 89-year-old woman who was at her baseline state of health until two days prior to hospital admission when she started noticing left hand numbness which happened occasionally and went away. It progressed on the day of admission and involved her left arm, left side of face, lips and she felt altered sensation in her left leg as well. She denies any headache, neck or back pain. She denies aphagia, dysarthria, diplopia, urinary incontinence, numbness, weakness of arms and legs. The patient states that she was not taking aspirin at home and she messed up her medications. PAST MEDICAL HISTORY: Bladder tumor status post resection, macular degeneration, recurrent urinary tract infection, urinary incontinence, cystocele, L4 compression fracture, diverticulitis, appendectomy. SOCIAL HISTORY: She quit smoking in 2004. She denies alcohol or illicit drugs. She is retired. FAMILY HISTORY: Father had stroke. Mother . Son from lung cancer. REVIEW OF SYSTEMS: All systems are reviewed and found to be noncontributory except as mentioned in the history of present illness. HOME MEDICATIONS: - Amlodipine 5 mg by mouth daily - Protonix 40 mg by mouth daily - Paxil 20 mg by mouth daily - Aspirin 81 mg by mouth as needed ALLERGIES: CITALOPRAM, DIAZEPAM. PHYSICAL EXAMINATION: VITAL SIGNS: Temperature 97.9, pulse 66, respiratory rate 20, blood pressure 154/72. HEART: Regular rate and rhythm. LUNGS: Clear to auscultation. ABDOMEN: Abdomen is soft, nontender, nondistended. EXTREMITIES: No pedal edema. MUSCULOSKELETAL: No musculoskeletal abnormalities. SKIN: No rash. No signs of meningeal irritation. NEUROLOGIC: The patient is awake, alert, oriented to person, place, and time. Normal speech, comprehension and repetition. Extraocular muscles are intact. No facial weakness. Uvula midline. 5/5 strength in upper extremities. Deep tendon reflexes are 2+ throughout. She has decreased cold vibration sensation in the left-sided of her face, arm and leg. Gait is mildly unsteady. DIAGNOSTIC STUDIES: MRI scan of the brain was reviewed and showed small right posterolateral acute ischemic stroke in thalamus. MRA brain and CTA of head and neck showed 2.5 mm right THOMAS and 2 mm left MCA aneurysms. She had mild atherosclerosis in her carotid arteries. ASSESSMENT: 1. Small right posterolateral thalamic acute ischemic stroke. 2. 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 3. Hypertension. 4. Dyslipidemia with LDL 132 and HDL 41. PLAN: 1. Aspirin 81 mg by mouth daily. 2. Plavix 75 mg by mouth daily. Plavix can be discontinued after three weeks. 3. Simvastatin 20 mg by mouth daily. 4. Physical and occupational therapy. 5. Follow up with our office in two weeks after hospital discharge. EL
--- NOTE | 2019-12-22 10:39 | DS.PDOC ---
Discharge Summary General Date of Admission Dec 20, 2019 at 15:42 Date of Discharge 12/22/19 Discharge Summary DISCHARGE DIAGNOSES: Acute ischemic right posterolateral thalamic CVA with left facial and hand/arm numbness Hypertensive Urgency Incidental finding 2 small humphreys aneurysms, 2mm and 3mm central canal stenosis with foraminal narrowing at C5-6 degenerative spondylosis at C 6 7 C4-5 disc protrusion is present at C4-5. COMPLICATIONS/CHIEF COMPLAINT: Rt Thalamic Stroke. HISTORY OF PRESENT ILLNESS: 89 y/o female with history of 10 pack years of cigarette smoking, quit over 10 years ago, was in her usual state of health until 2 days ago when she noticed her left hand feeling numb which happens occasionally and goes away. This progressed on to all day today with involvement of the rest of the lateral arm as well as her left upper lip. She denied any dysarthria, dysphagia, or motor weakness of b/l ue and LE, or gait abnormalities. No medications were taken at home. No c/o difficulty understanding or selecting words. no c/o diplopia, blurred vision, and denies palpitations, chest pain, dizziness, or lightheadedness. She denies any history of atrial fibrillation or hypercoagulable state. In the ER, MRI Brain: acute right posterolateral thalamic CVA, EKG: sinus Jose, sbp 140 on arrival, but sbp>180 at 6pm. Hospitalist was asked to admit the patient for acute ischemic cva. HOSPITAL COURSE: Patient remained in sinus rhythm on telemetry, and was started on plavix. carotid arteries without hemodynamically significant stenosis. Dr. Zabala, neurologist consulted and recommended outpt fu and to continue present meds asa, plavix, zocor. Pt had uncontrolled hypertension treated and stabilized with norvasc. Granddaughter and daughter will help her check bp at home, and she will fu brittney hernández within one week fo discharge. pt cleared her to use her cane as needed. she remained independent. DISCHARGE MEDICATIONS: Please see below. ALLERGIES: Please see below. PHYSICAL EXAMINATION ON DISCHARGE: VITALS SEE BELOW GENERAL APPEARANCE: AAOx 3. speech is fluent . no drooling HEENT: PERRL EOMI no cervical LAD thyromegaly or JVD. no pharyngeal erythema. no facial asymmetry tongue and uvula midline decreased sensation along lateral face from mandible to christianity. CARDIOVASCULAR: S1S2 sinus bradycardia LUNGS: CTAB AEBE ABDOMEN:+ bs x 4quadrants NT ND soft no HSM no abdominal bruit EXTREMITIES:(-) edema, cyanosis, or clubbing NEUROLOGICAL:AAO x 3, speech is fluent. no facial asymmetry, no pronator drift. decreased sensation in left hand, arm, and left upper lip . motor 5/5 strength x 4 extremities. LABORATORY DATA: See below. EKG: SINUS BRADYCARDIA 57 INTRAVENTRICULAR CONDUCTION DELAY SIMILAR 12/09/16 Electronically Signed on 12-20-2019 14:27:54 EDT by Fannie Huynh IMAGING: CT HEAD WITHOUT CONTRAST Generalized volume loss and small vessel changes. Vascular calcification is noted. Old appearing lacunar infarct in the left basal ganglia. Otherwise negative.. <Electronically signed by Bassem Christianson > 12/20/19 1154 CXR The lungs are well inflated and clear. Pleural angles are sharp. Heart is not enlarged. The aorta is calcific and somewhat tortuous. Pulmonary vasculature is not increased. No significant bony abnormality. IMPRESSION: No active disease. CT CERVICAL SPINE The dominant abnormality is central canal stenosis and bilateral uncovertebral spurring and foraminal narrowing at C5-6 due to degenerative disc disease. The foraminal narrowing is worse on the left. There is degenerative spondylosis at C 6 7 and C4-5 as well. A small central focal disc protrusion is present at C4-5. Electronically signed by Bassem Christianson > 12/20/19 1453 MRA BRAIN There are 2 small humphreys aneurysms as described above; involving the left M1 segment and the right A1 segment. These measure 2 and 3 mm in greatest diameter respec tively. Otherwise negative MR angiography of the brain.. MRI BRAIN Axial and sagittal imaging planes are utilized for T1 and T2-weighted scans. Sequences include spin-echo, fast spin echo, FLAIR, and diffusion weighted sequences. There is a focus of restricted diffusion in the right posterolateral thalamus consistent with an acute lacunar infarct in that location. Generalized volume loss and small vessel changes are noted. There is no evidence of intracranial hemorrhage.. TIME SPENT ON DISCHARGE: 30 minutes. Vital Signs/I&Os Vital Signs Date Time Temp Pulse Resp B/P (MAP) Pulse Ox O2 Delivery O2 Flow Rate FiO2 12/22/19 08:56 85 144/72 12/22/19 08:00 97.8 17 98 Room Air I&O- Last 24 Hours up to 6 AM 12/22/19 06:00 Intake Total 1305 ml Output Total 0 ml Balance 1305 ml Laboratory Data Labs 24H Laboratory Tests 2 12/22/19 05:15: Nucleated Red Blood Cells % (auto) 0.0, Anion Gap 5L, Glomerular Filtration Rate 58.3, Calcium Level 9.3 CBC/BMP Laboratory Tests 12/22/19 05:15 Discharge Medications Scheduled Amlodipine Besylate (Amlodipine Besylate) 10 Mg Tablet, 10 MG PO DAILY Aspirin (Aspirin EC) 81 Mg Tablet.dr, 81 MG PO DAILY Clopidogrel Bisulfate (Clopidogrel) 75 Mg Tablet, 75 MG PO DAILY Pantoprazole Sodium (Pantoprazole Sodium) 40 Mg Tab, 40 MG PO DAILY, (Reported) Paroxetine HCl (Paroxetine HCl) 20 Mg Tab, 20 MG PO DAILY, (Reported) Simvastatin (Simvastatin) 20 Mg Tablet, 20 MG PO QHS Allergies Coded Allergies: citalopram (Verified Allergy, Intermediate, 12/20/19) diazepam (Verified Adverse Reaction, Intermediate, hallucinations, 12/21/19) LAURA KELLER MD Dec 22, 2019 10:39
== END 2019-12-22 12:06 | disposition home or self-care (01) | DRG 66 ==
LOC: M ED 11:19 → M ED INP 15:42 → ENRESERV 16:53 → M PCU 17:10
PROVIDERS: ADMIT General Practice; ATTEND General Practice
DX: I63.9 Cerebral infarction, unspecified (principal); I16.0 Hypertensive urgency; I67.1 Cerebral aneurysm, nonruptured; M48.02 Spinal stenosis, cervical region; M50.20 Other cervical disc displacement, unspecified cervical region; M43.02 Spondylolysis, cervical region; Z87.891 Personal history of nicotine dependence; Z79.82 Long term (current) use of aspirin; Z79.899 Other long term (current) drug therapy; Z85.51 Personal history of malignant neoplasm of bladder; H35.30 Unspecified macular degeneration; K57.30 Diverticulosis of large intestine without perforation or abscess without bleeding; E78.5 Hyperlipidemia, unspecified

== ENCOUNTER → 2020-03-02 | Outpatient (CLI) | payer MEDICARE ==
[~2020-03-02] MED LIST changes: +AMLO1TAB24 PO; +AMLO1TAB25 PO; +ASPI81CH33 PO; +ASPI81TAEC PO; +CLOP75TA2 PO; +SELF1KIT MC; +SIMV20TA22 PO
--- NOTE | 2020-03-02 17:01 | REP ---
INDICATION: RIGHT BREAST MASS. COMPARISON: None TECHNIQUE: Real-time sonographic evaluation of right breast performed. FINDINGS: At the site of a palpable lump in the right breast at 9 o'clock there is a heterogeneous hypoechoic mass with lobulated margins measuring 2.6 x 2.1 x 1.8 cm. It is located approximately 4 cm from the nipple. With Doppler evaluation there is internal blood flow. IMPRESSION: BIRADS/ACR category 4, suspicious. Solid heterogeneous lobulated mass at the site of the palpable lump right breast at 9 o'clock. Recommend ultrasound-guided biopsy. RECOMMENDATION: Recommend ultrasound-guided biopsy of mass right breast 9 o'clock. <Electronically signed by Kobe Siu > 03/02/20 [id number]
== END ==
LOC: M WHC 12:21
PROVIDERS: ATTEND Nurse Practitioner Adult Health
DX: N63.15 Unspecified lump in the right breast, overlapping quadrants (principal)

== ENCOUNTER → 2020-03-27 | Outpatient (CLI) | payer MEDICARE | LOC: M WHCPRO 10:10 | PROVIDERS: ATTEND Nurse Practitioner Adult Health | DX: N63.10 Unspecified lump in the right breast, unspecified quadrant (principal); Z53.8 Procedure and treatment not carried out for other reasons ==

== ENCOUNTER → 2020-05-03 | Outpatient (CLI) | payer MEDICARE ==
[~2020-05-03] MED LIST changes: +ASPI-569 PO; -ASPI81TAEC PO
--- NOTE | 2020-05-03 10:27 | REP ---
INDICATION: RT BREAST MASS. COMPARISON: Mammography prior mammography dated May 16, 2015, August 08, 2013, and April 02, 2012. Comparison is made with more recent sonography of this patient's right breast mass dated March 02, 2020. TECHNIQUE: Bilateral CC and MLO) view(s) were taken. Routine views of the right breast were augmented by magnified focal spot-compression cc at MLO and mL views. A skin marker is affixed to the skin at the site of the right breast mass. 3D tomography is carried out. Ultrasound was performed previously. FINDINGS: Breast parenchyma is heterogeneously dense. This may inhibit the sensitivity of mammography. There is a new well-circumscribed soft tissue mass in the upper-outer quadrant of the right breast at the site of the palpable lump. This measures 2.7 x 2.6 x 2.4 cm in overall dimension. There is a stable lymph node visible in the right axilla. No visible adenopathy. Vascular calcifications noted bilaterally. Some secretory benign calcifications are visible on the left. No other suspicious mammographic abnormality is seen in either breast. The Volpara volumetric breast density pattern is C. IMPRESSION: BI-RADS category 5 highly suspicious right breast mammography. A solid lesion is seen by ultrasound the site of the palpable lump and mammographically visible mass in the right breast. Histologic sampling is recommended. This mammogram was interpreted with the aid of an FDA-approved computer-aided detection system. The patient states she had a clinical breast exam in more than a year ago.. The patient letter being requested is M4. RECOMMENDATION: Repeat screening mammography recommended 1 year (for women over 40). <Electronically signed by Bassem Christianson > 05/03/20 [id number]
== END ==
LOC: M WHC 09:11
PROVIDERS: ATTEND Nurse Practitioner Adult Health
DX: N63.11 Unspecified lump in the right breast, upper outer quadrant (principal)
CPT/HCPCS: 77066; G0279

== ENCOUNTER → 2020-05-09 | Outpatient (CLI) | payer MEDICARE ==
[2020-05-09 11:07] VITALS: BP 140/74
--- NOTE | 2020-05-09 12:36 | REP ---
INDICATION: N63.0 RT BREAST PALPABLE MASS,US GUIDED BIOPSY. COMPARISON: Comparison sonography 02 March 2020.. TECHNIQUE: Sonographic guidance. FINDINGS: Ultrasound guidance is provided to Dr. Hurley performed ultrasound-guided needle biopsy procedure with marker clip placement. IMPRESSION: Sonographic guidance. Procedural imaging. <Electronically signed by Bassem Christianson > 05/09/20 [id number]
--- NOTE | 2020-05-09 12:43 | REP ---
INDICATION: N63.0 RT BREAST PALABLE MASS,POST US GUIDED BIOPSY. Marker clip placement views. COMPARISON: Comparison mammography May 03, 2020. TECHNIQUE: Craniocaudal and mediolateral views of the right breast are obtained. This mammogram was interpreted with the aid of an FDA-approved computer-aided detection system. FINDINGS: A needle biopsy marker clip is seen centrally located within the recently identified mass in the right lateral mid breast. No new mammographic finding. IMPRESSION: Marker clip in good position right breast post biopsy. RECOMMENDATION: Treatment depending on biopsy results.. <Electronically signed by Bassem Christianson > 05/09/20 [id number]
--- NOTE | 2020-05-09 17:46 | ROOPDOC ---
[facility] Report Of Operation Report of Operation DATE OF PROCEDURE: DIAGNOSIS: right breast suspicious lesion PROCEDURE: Ultrasound guided biopsy of right breast suspicious lesion with clip placement SURGEON: Donaldo Luna BLOOD LOSS: minimal COMPLICATIONS: none Lidocaine 1% LOT [id number] Expiration 05/2023 Sodium Bicarbonate 4% LOT [id number] Expiration 05/2020 Hydromark clip LOT F [id number] Expiration 12/2022 SHAPE : 3 Bx device: BARD [id number] x10 cm LOT [id number] Expiration 02/2021 Informed consent was obtained. The most common risk and possible complications including bleeding, hematoma, bruising, infection, injury to surrounding structures were explained to the patient and the patient expressed understanding. Patient was placed on the bed in the supine position. Appropriate time out was done stating patients name, date of , and the procedure to be performed. The right breast was prepped and draped in the usual fashion. The ultrasound was used to confirm the location of the lesion in the right breast at 9:00. Plain Lidocaine 1% and 4% sodium bicarbonate 10:2 mix was used to anesthetize the skin, the biopsy site and tissues along the anticipated biopsy tract. Small skin incision was made with blade number 11. BARD Marquee 14G cannula with introducer ([id number]) was inserted through the incision and advanced under the ultrasound guidance to position immediately adjacent to the lesion. Next, the introducer was removed and BARD Marquee 14G biopsy device was places in the cannula. Pre-biopsy imaging, and post-biopsy imaging were captured. Five good core biopsies were taken at various levels of the lesion. Specimen was placed in formaldehyde, labeled with appropriate biopsy site and patients name, and sent to pathology for evaluation. Next, the biopsy device was withdrawn and a clip introducer was inserted into the biopsy site via the cannula. The SHAPE 3 Hydromark clip was deployed under sonographic guidance. Post-clip placement image was captured. Manual pressure over the biopsy cavity and tract was held after the clip introducer was withdrawn. No bleeding was noted upon removal of the pressure. Post-biopsy mammogram of the right breast was obtained and showed clip in expected position. Postprocedural dressing was placed. Patient tolerated procedure well. Discharge instructions were discussed with the patient and the patient expressed understanding. DONALDO LUNA DO May 09, 2020 17:46
== END ==
LOC: M WHCPRO 09:54
PROVIDERS: ATTEND Surgery
DX: C50.411 Malignant neoplasm of upper-outer quadrant of right female breast (principal); C50.511 Malignant neoplasm of lower-outer quadrant of right female breast

== ENCOUNTER → 2020-05-15 | Outpatient (REF) | payer MEDICARE ==
[2020-05-15 14:45] LABS: CALCIUM LEVEL 9.2 MG/DL (8.8-10.2); CREATININE FOR GFR 1.06 MG/DL (0.55-1.30); POTASSIUM SERUM 4.4 MEQ/L (3.5-5.1)
== END ==
LOC: M PLALAB 11:34
PROVIDERS: ATTEND Surgery
DX: C50.911 Malignant neoplasm of unspecified site of right female breast (principal)

== ENCOUNTER → 2020-05-25 | Outpatient (CLI) | payer MEDICARE ==
[~2020-05-25] MED LIST changes: +PROHANCE 279.3MG/ML 5ML VIAL As Ordered ONE
--- NOTE | 2020-05-25 17:03 | REP ---
INDICATION: MUCINOUS CARCINOMA RT BREAST. COMPARISON: Mammogram 05/03/2020, ultrasound 03/02/2020. TECHNIQUE: Three Gema MRI imaging was performed with a dedicated breast coil. Axial, coronal, and sagittal T1 and T2 weighted scans were obtained with and without fat saturation in the usual fashion. The study includes dynamically acquired post gadolinium-enhanced imaging with image subtraction. Maximum intensity projection and multi planar reformation imaging is included as well. This study is interpreted with the aid of Fastnote, an FDA approved computer aided detection (CAD) software program, on a dedicated breast MRI workstation. The gadolinium enhancement dose is 6 mL of intravenous ProHance. FINDINGS: Mild scattered fibroglandular tissue is present bilaterally. No pathologically enlarged lymph nodes are seen in either axillary region. There is no significant cystic change. There is mild background parenchymal enhancement. In the upper-outer quadrant of the right breast approximately 3 cm from the nipple there is a heterogeneously enhancing mass with nonenhancing central cystic areas. It measures about 2.4 cm in maximum diameter. There is internal biopsy clip. Extending from the mass, inferiorly and anteriorly to a subcutaneous location, is a fluid collection with internal septations, with a hemorrhagic component, most consistent with post biopsy hemorrhage and/or seroma. This demonstrates no enhancement. There is no other evidence of enhancing mass or morphologic abnormality bilaterally. IMPRESSION: BI-RADS category 6 known right breast cancer. 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 The mass is seen today by MRI in the upper-outer quadrant of the right breast as discussed in detail above. No other suspicious mass or morphologic abnormality is seen bilaterally. <Electronically signed by Kobe Siu > 05/25/20 1705
== END ==
LOC: M RAD 14:03
PROVIDERS: ATTEND Surgery
DX: C50.911 Malignant neoplasm of unspecified site of right female breast (principal)
CPT/HCPCS: A9576; C8908

== ENCOUNTER → 2020-06-04 | Outpatient (CLI) | payer MEDICARE ==
[~2020-06-04] MED LIST changes: -PROHANCE 279.3MG/ML 5ML VIAL As Ordered ONE; +REVIEWED
--- NOTE | 2020-06-04 12:13 | REPPI ---
INDICATION: PRE OP. COMPARISON: 12/20/2019 a portable exam and 12/09/2016 PA and lateral views. TECHNIQUE: PA and lateral views FINDINGS: There is mild cardiomegaly. The lung wins[place] are clear and stable. No acute patchy parenchymal opacities or pleural effusions have developed. There is no significant change in appearance of the imaged osseous structures. There are multiple stable vertebral body compression fractures. IMPRESSION: Mild cardiomegaly without evidence of acute cardiopulmonary disease. <Electronically signed by Urbano Waller > 06/04/20 [id number]
== END ==
LOC: M PLAIMG 11:16
PROVIDERS: ATTEND Surgery
DX: Z01.818 Encounter for other preprocedural examination (principal); I51.7 Cardiomegaly

== ENCOUNTER → 2020-06-07 | Outpatient (CLI) | payer MEDICARE | LOC: M LABSMTC 11:44 | PROVIDERS: ATTEND Anesthesiology | DX: Z01.812 Encounter for preprocedural laboratory examination (principal); Z20.822 Contact with and (suspected) exposure to COVID-19 ==

== ENCOUNTER 2020-06-12 07:53 | Observation (INO) | payer MEDICARE ==
[~2020-06-12] VITALS: Ht 152.4 cm; Wt 55.7 kg
[~2020-06-12 07:53] MED LIST changes: +HEPARIN SOD (PORCINE) 5000UNITS/ML 1ML VIAL/SYRINGE SQ ONE; +LIDOCAINE 1% MDV 20ML VIAL SQ PRN; +LR 1,000 ML IV ONE; +ceFAZolin SOD 2 GM in IV 1 EA IV ONE
[2020-06-12] MEDS ORDERED: propofoL 200 MG/20 ML VIAL As Ordered ONE (10:55)
[2020-06-12] MEDS ORDERED: MIDAZOLAM INJ 2MG/2ML VIAL (J2250 PER 1MG) As Ordered ONE (10:55)
[2020-06-12] MEDS ORDERED: ONDANSETRON 4MG/2ML VIAL As Ordered ONE (10:55)
[2020-06-12] MEDS ORDERED: LIDOCAINE 2% 100MG/5ML SDV (FOR ANES.) As Ordered ONE (10:55)
[2020-06-12] MEDS ORDERED: fentaNYL 100 MCG/2 ML INJECTION (J3010) As Ordered ONE (10:55)
[2020-06-12] MEDS ORDERED: ROCURONIUM BROMIDE 50 MG/5 ML VIAL As Ordered ONE (10:55)
[2020-06-12] MEDS ORDERED: ACETAMINOPHEN 1000MG 100ML IV BTL (OFIRMEV) (J0131 PER 10MG) As Ordered ONE (10:55)
[2020-06-12] MEDS ORDERED: dexameTHASONE 4 MG/ML 1ML VIAL (J1100 PER 1MG) As Ordered ONE (10:55)
[2020-06-12] MEDS ORDERED: SUGAMMADEX SODIUM 500 MG/5 ML VIAL (BRIDION) As Ordered ONE (10:56)
[2020-06-12] MEDS ORDERED: BUPIVACAINE LIPOSOME/PF 1.3% 20ML VIAL (13.3MG/ML)(EXPAREL)(C9290 PER1MG) As Ordered ONE (12:37)
[2020-06-12] MEDS ORDERED: ONDANSETRON 4MG/2ML VIAL IV PRN ×2 (16:10→16:25)
[2020-06-12] MEDS ORDERED: fentaNYL 100 MCG/2 ML INJECTION (J3010) IV PRN (16:10)
[2020-06-12] MEDS ORDERED: LR 1,000 ML IV SCH (16:10)
[2020-06-12] MEDS ORDERED: oxyCODONE 5MG TAB PO PRN (16:10)
[2020-06-12] MEDS ORDERED: ACETAMINOPHEN TAB 650MG DOSE (2X325MG) PO PRN (16:25)
[2020-06-12] MEDS ORDERED: traMADol 50 MG TAB PO PRN (16:25)
--- NOTE | 2020-06-12 16:41 | REP ---
INDICATION: RIGHT SENTINEL LYMPH NODE. COMPARISON: None. TECHNIQUE: The procedure was performed under the direct supervision of Dr. Christianson. The images were reviewed with Dr. Christianson. The risks and benefits of the procedure were explained to the patient and informed consent was obtained. Using topical anesthetic and sterile technique 0.98 4 mCi of technetium 99 filtered sulfur colloid was injected subdermally in 8 fractionated periareolar injections. FINDINGS: There is francisca uptake in the axillary region on the right. IMPRESSION: Right breast lymphoscintigraphy. There is francisca uptake in the axillary region on the right. <Electronically signed by Vasyl Jerez > 06/12/20 1627 <Electronically signed by Bassem Christianson > 06/12/20 163
--- NOTE | 2020-06-12 16:44 | HPEPDOC ---
[facility] Medical History & Physical Date of Admission Jun 12, 2020 Date of Service: Jun 12, 2020 Attending Physician: Amelie Zapata MD History and Physical CHIEF COMPLAINT: S/p right breast mastectomy HISTORY OF PRESENT ILLNESS: Patient is an 89-year-old female with past medical history of hypertension, CVA, diverticulosis, CKD stage III, hyperlipidemia, anemia, vitamin D deficiency, restless leg syndrome, bladder cancer status post transurethral resection of bladder tumor, right breast cancer who was admitted today for right breast mastectomy performed by Dr. Hurley. The patient presented in February 2020 for her annual exam and at that time she was found to have a right breast mass. She underwent biopsy and was scheduled for an elective right simple breast mastectomy which was done today. Pre-, intra-and postoperatively there were no complications. Hemodynamically she is stable. She complained of some chest discomforts associated with the mastectomy but no shortness of breath, fevers, chills, nausea, vomiting. She also complained of some mild lightheadedness without dizziness. Per Dr. Hurley's request, hospitalist will admit status post right breast mastectomy to observe over the evening and likely discharge on 06/13/2020 if no events overnight. REVIEW OF SYSTEMS: CONSTITUTIONAL: Denies lack of energy, unexplained weight gain or weight loss, loss of appetite, fever, night sweats EYES: Denies eye drainage, eye pain, visual changes, dry/irritated eye EARS, NOSE, MOUTH, THROAT: Denies difficulty hearing, ringing in ears, mouth so res, loose teeth, sore throat, facial numbness or pain NECK: Denies swollen glands CARDIOVASCULAR: Denies irregular heartbeat, racing heart, chest pains, swelling of feet or legs, pain in legs with walking RESPIRATORY: Denies shortness of breath, night sweats, wheezing, sputum production, oxygen at home, coughing up blood, cough lasting > 1 month GASTROINTESTINAL: Denies abdominal pain, constipation, bloody stool, diarrhea, heartburn, nausea, vomiting GENITOURINARY: Denies painful urination, bloody urine, frequent urination, urgency, leaking urine, impotence MUSCULOSKELETAL: Denies joint pain, muscle pain, leg swelling INTEGUMENTARY: Denies rash, itching, new skin lesion, change in existing skin lesion, hair loss or increase, breast changes. NEUROLOGICAL: Denies headaches, dizziness, difficulty walking, numbness or tingling PSYCHIATRIC: Denies depression, anxiety, recurrent bad thoughts, mood swings, hallucinations PAST MEDICAL HISTORY: hypertension, CVA, diverticulosis, CKD stage III, hyperlipidemia, anemia, vitamin D deficiency, restless leg syndrome, bladder cancer status post transurethral resection of bladder tumor, right breast cancer PAST SURGICAL HISTORY: Right simple breast mastectomy with right sentinel LN bx (06/12/20) Right breast bx Appendectomy Exploratory laparotomy for perforated colon and temporary colostomy Kyphoplasty Cataract removal Colonoscopy 2010 FAMILY HISTORY: Father: Unknown cause of . at 62 Mother: genital cancer (unknown type). at 79 SOCIAL HISTORY: Prior smoker less than 1 pack per day for over 25 years. Quit 40 years ago. Drinks alcohol socially, denies illicit drug use. She lives alone locally. She follows regularly with her primary care provider, urologist and breast cancer surgeon. ALLERGIES: Please see below. HOME MEDICATIONS: Please see below. PHYSICAL EXAMINATION: VS: Please see below CONSTITUTIONAL: No acute distress, resting comfortably, AAO x 3 EYES: PERRLA, EOM intact HENT, MOUTH: Normocephalic, atraumatic, moist mucous membranes NECK: SUPPLE, no JVD, no lymphadenopathy, no carotid bruit CV: Regular rate and rhythm, S1S2 normal, no murmurs/rubs/gallops CHEST: right breast incisions covered with dressings RESPIRATORY: Clear to auscultation bilaterally, no rales/rhonchi/wheezes GI: BS positive in 4 quadrants, soft, nontender, nondistended, no rebound or guarding, no organomegaly : Deferred MUSCULOSKELETAL: Normal ROM. No cyanosis, clubbing, swelling, joint deformity, extremity edema INTEGUMENTARY: Intact, no rashes, no lesions, no erythema NEUROLOGIC: Cranial Nerves II-XII are intact, no focal deficits PSYCHIATRIC: Mood and affect are normal LABORATORY DATA: Please see below IMAGING: None ASSESSMENT: 89-year-old female with past medical history of hypertension, CVA, diverticulosis, CKD stage III, hyperlipidemia, anemia, vitamin D deficiency, restless leg syndrome, bladder cancer status post transurethral resection of bladder tumor, right breast cancer who was admitted under observation status today s/p right simple breast mastectomy with right sentinel LN bx performed by Dr. Hurley. PLAN: Right side breast cancer s/p right simple breast mastectomy with right sentinel LN bx -No post-op complications -Pain control, activity restrictions per surgery, abx, IVFs -Surgery to follow in the AM and f/u bx results as o/p -Holding AC, SCDs for now HTN -C/w home meds with holding parameters -D/c IVFs if BP remains elevated and patient taking PO fine -Low salt, CLD diet Hx of CVA -Resume ASA in the AM, statin CKD stage III -F/u AM labs -F/u o/p -Avoid excess nephrotoxic meds HLD -Statin Bladder cancer status post transurethral resection of bladder tumor -F/u o/p with urology Anemia -Minimal blood loss -F/u CBC in AM RLS -Stable GERD -PPI DVT px -SCDs, teds. Holding AC DISPOSITION: Admitted under observation status, Dr. Hurley consulted and will follow. Plan is hopefully discharge 06/13/20. Vital Signs Vital Signs Date Time Temp Pulse Resp B/P (MAP) Pulse Ox O2 Delivery O2 Flow Rate FiO2 06/12/20 08:22 96.3 60 18 173/80 (111) 100 Room Air Home Medications Scheduled Amlodipine Besylate (Amlodipine Besylate) 10 Mg Tablet, 10 MG PO DAILY Aspirin (Aspirin EC) 81 Mg Tablet.dr, 81 MG PO DAILY Pantoprazole Sodium (Pantoprazole Sodium) 40 Mg Tab, 40 MG PO DAILY Paroxetine HCl (Paroxetine HCl) 20 Mg Tab, 20 MG PO DAILY Simvastatin (Simvastatin) 20 Mg Tablet, 20 MG PO QHS Miscellaneous Medications [Reviewed] Allergies Coded Allergies: citalopram (Verified Allergy, Intermediate, 06/12/20) bee venom protein (honey bee) (Verified Allergy, Unknown, SWELLING, 06/12/20) diazepam (Verified Adverse Reaction, Intermediate, hallucinations, 06/12/20 ) A-FIB/CHADSVASC A-FIB History Current/History of A-Fib/PAF?: No Current PO Anticoag Therapy: No Age/Risk Factor Scoring CHADSVASC: CHADSVASC Response (Comments) Value Age Risk Factor Age >/= 75 years old 2 Gender Risk Factor Female 1 Hx of CHF No 0 Hx of HTN Yes 1 Hx of Stroke/TIA/or VTE Yes 2 Hx of Diabetes No 0 Hx of Vascular Disease No 0 Total 6 Treatment Treatment ordered: Other Other anticoagulant ordered: other Amelie Zapata MD Jun 12, 2020 16:43
[2020-06-12 17:20] VITALS: BP 134/60
[2020-06-12 17:55] VITALS: BP 138/59
[2020-06-12 18:56] VITALS: BP 159/73
[2020-06-12 19:55] VITALS: BP 130/60
[2020-06-12 20:55] VITALS: BP 129/62
[2020-06-12] MEDS ORDERED: SIMVASTATIN 20 MG TAB PO SCH (21:00)
[2020-06-12 21:55] VITALS: BP 126/55
[2020-06-12] MEDS: ceFAZolin SOD 2 GM in IV 1 EA IV SCH (22:11)
[2020-06-13] MEDS: ceFAZolin SOD 2 GM in IV 1 EA IV SCH (05:17)
[2020-06-13 06:00] VITALS: BP 128/59
[2020-06-13 07:01] LABS: HEMATOCRIT 30.7 % (36.0-47.0); HEMOGLOBIN 10.3 g/dl (12.0-15.5); MEAN CORPUSCULAR HEMOGLOBIN 32.2 pg (27.0-33.0); MEAN CORPUSCULAR HGB CONC 33.6 g/dl (32.0-36.5); MEAN CORPUSCULAR VOLUME 95.9 fl (80.0-96.0); PLATELET COUNT, AUTOMATED 238 10^3/uL (150-450); WHITE BLOOD COUNT 12.7 10^3/uL (4.0-10.0)
[2020-06-13 07:41] LABS: ALBUMIN 2.9 GM/DL (3.2-5.2); BILIRUBIN,TOTAL 0.3 MG/DL (0.2-1.0); CALCIUM LEVEL 9.6 MG/DL (8.8-10.2); CREATININE FOR GFR 0.94 MG/DL (0.55-1.30); GLOMERULAR FILTRATION RATE 59.7 (>32); POTASSIUM SERUM 4.3 MEQ/L (3.5-5.1); TOTAL PROTEIN 6.6 GM/DL (6.4-8.2)
[2020-06-13] MEDS ORDERED: TRAM50TA2 PO (08:15)
--- NOTE | 2020-06-13 08:30 | IPNPDOC ---
Subjective Date Seen The patient was seen on 06/13/20. Subjective Chief Complaint/HPI 89 years old lady with large Right breast cancer and past medical hx of CVA, s/p R simple mastectomy and R SLNbx POD1 Patient is doing well today. She is eating breakfast now without nausea. Pain is controlled. She voided postop. Drain output 70 cc yesterday and 25 cc today from both drains ? (it was recorded as one even though patient has 2 drains) Objective Physical Examination Other physical findings alert and oriented x3 breathing comfortably on room air Right chest wall mastectomy flaps viable, well approximates incision with Prineo dressing, no hematoma, minimal bruising, 2 drains on the lateral aspect of the right chest wall with s/s drainage abdomen nondistended Assessment /Plan Assessment 89 years old lady with large Right breast cancer and past medical hx of CVA, s/p R simple mastectomy and R SLNbx POD1 - discharge planning, discharge around noon/ after patient had lunch to assure that she tolerated PO - stop IVF - one more dose of Ancef this AM - Incentive spirometry encouraged, pls send patient home with IS - pain control - OOB. ambulate with assistance - dont change right mastectomy dressings or bra, this will be done by me - please record drain output - each drain separately, please teach patient how to record the drainage and how to empty drains, she needs to bring the list with the drainage amounts to the office on Thursday - please give patient my "simple mastectomy discharge instructions", available at bronze plater desk - Postop appt already scheduled for 06/18 - Rx for Ultram 50 mg q6h prn pain, 10 pills, try Tylenol first for pain - PLEASE CALL SON JACOB AT [phone] WHEN PATIENT IS READY FOR DISCHARGE AROUND NOON - greatly appreciate Medical Team assistance in taking care of Ms. Lutz - case discussed with bellstaff and Dr Zapata Plan/VTE VTE Prophylaxis Ordered?: Yes VTE Exclusion Pharmacological: Bleeding Risk VS, I&O, 24H, Fishbone Vital Signs/I&O Vital Signs Date Time Temp Pulse Resp B/P (MAP) Pulse Ox O2 Delivery O2 Flow Rate FiO2 06/13/20 06:00 97.4 72 18 128/59 (82) 93 Room Air I&O- Last 24 Hours up to 6 AM 06/13/20 05:59 Intake Total 2200 ml Output Total 445 ml Balance 1755 ml Laboratory Data 24H LABS Laboratory Tests 2 06/13/20 06:40: Nucleated Red Blood Cells % (auto) 0.0 06/13/20 06:41: Anion Gap 8, Glomerular Filtration Rate 59.7, Calcium Level 9.6, Total Bilirubin 0.3, Aspartate Amino Transf (AST/SGOT) 18, Alanine Aminotransferase (ALT/SGPT) 12, Alkaline Phosphatase 71, Total Protein 6.6, Albumin 2.9L, Albumin/Globulin Ratio 0.8L CBC/BMP Laboratory Tests 06/13/20 06:40 06/13/20 06:41 DONALDO LUNA DO Jun 13, 2020 08:30
[2020-06-13 08:44] VITALS: BP 126/57
[2020-06-13] MEDS ORDERED: PARoxetine 20MG TABLET PO SCH (09:00)
[2020-06-13] MEDS ORDERED: PANTOPRAZOLE 40MG TAB (PROTONIX) PO SCH (09:00)
[2020-06-13 14:00] VITALS: BP 135/96
--- NOTE | 2020-06-13 19:48 | DS.PDOC ---
Discharge Summary General Date of Admission 06/12/20 Date of Discharge 06/13/20 Attending Physician: Amelie Zapata MD Discharge Summary HISTORY OF PRESENT ILLNESS: Patient is an 89-year-old female with past medical history of hypertension, CVA, diverticulosis, CKD stage III, hyperlipidemia, anemia, vitamin D deficiency, restless leg syndrome, bladder cancer status post transurethral resection of bladder tumor, right breast cancer who was admitted today for right breast mastectomy performed by Dr. Hurley. The patient presented in February 2020 for her annual exam and at that time she was found to have a right breast mass. She underwent biopsy and was scheduled for an elective right simple breast mastectomy which was done today. Pre-, intra-and postoperatively there were no complications. Hemodynamically she is stable. She complained of some chest discomforts associated with the mastectomy but no shortness of breath, fevers, chills, nausea, vomiting. She also complained of some mild lightheadedness without dizziness. Per Dr. Hurley's request, hospitalist will admit status post right breast mastectomy to observe over the evening and likely discharge on 06/13/2020 if no events overnight. HOSPITAL COURSE: No acute events overnight after surgery. She remained hemodynamically stable. Pain appears controlled with medications. Decision was made to d/c home with f/u with Dr. Hurley on 06/13/20. Instructions on drain care, wound care given to patient. at time of discharge, she denied any fevers, chills, n/v/d, shortness of breath, chest pain. PAST MEDICAL HISTORY: hypertension, CVA, diverticulosis, CKD stage III, hyperlipidemia, anemia, vitamin D deficiency, restless leg syndrome, bladder cancer status post transurethral resection of bladder tumor, right breast cancer PAST SURGICAL HISTORY: Right simple breast mastectomy with right sentinel LN bx (06/12/20) Right breast bx Appendectomy Exploratory laparotomy for perforated colon and temporary colostomy Kyphoplasty Cataract removal Colonoscopy 2010 FAMILY HISTORY: Father: Unknown cause of . at 62 Mother: genital cancer (unknown type). at 79 SOCIAL HISTORY: Prior smoker less than 1 pack per day for over 25 years. Quit 40 years ago. Drinks alcohol socially, denies illicit drug use. She lives alone locally. She follows regularly with her primary care provider, urologist and breast cancer surgeon. ALLERGIES: Please see below. HOME MEDICATIONS: Please see below. PHYSICAL EXAMINATION: VS: Please see below CONSTITUTIONAL: No acute distress, resting comfortably, AAO x 3 EYES: PERRLA, EOM intact HENT, MOUTH: Normocephalic, atraumatic, moist mucous membranes NECK: SUPPLE, no JVD, no lymphadenopathy, no carotid bruit CV: Regular rate and rhythm, S1S2 normal, no murmurs/rubs/gallops CHEST: right breast incisions covered with dressings RESPIRATORY: Clear to auscultation bilaterally, no rales/rhonchi/wheezes GI: BS positive in 4 quadrants, soft, nontender, nondistended, no rebound or guarding, no organomegaly : Deferred MUSCULOSKELETAL: Normal ROM. No cyanosis, clubbing, swelling, joint deformity, extremity edema INTEGUMENTARY: Intact, no rashes, no lesions, no erythema NEUROLOGIC: Cranial Nerves II-XII are intact, no focal deficits PSYCHIATRIC: Mood and affect are normal LABORATORY DATA: Please see below IMAGING: None ASSESSMENT: 89-year-old female with past medical history of hypertension, CVA, diverticulosis, CKD stage III, hyperlipidemia, anemia, vitamin D deficiency, restless leg syndrome, bladder cancer status post transurethral resection of bladder tumor, right breast cancer who was admitted under observation status to day s/p right simple breast mastectomy with right sentinel LN bx performed by Dr. Hurley. PLAN: Right side breast cancer s/p right simple breast mastectomy with right sentinel LN bx -No post-op complications -Pain control, activity restrictions per surgery -Surgery to follow as o/p HTN -C/w home meds Hx of CVA - ASA, statin CKD stage III -F/u with o/p PCP HLD -Statin Bladder cancer status post transurethral resection of bladder tumor -F/u o/p with urology Anemia -Minimal blood loss -CBC stable RLS -Stable GERD -PPI DISPOSITION: Discharged home with f/u with Dr. Hurley TIME SPENT ON DISCHARGE: 35 minutes. Vital Signs/I&Os Vital Signs Date Time Temp Pulse Resp B/P (MAP) Pulse Ox O2 Delivery O2 Flow Rate FiO2 06/13/20 14:00 97.4 79 18 135/96 (109) 94 Room Air I&O- Last 24 Hours up to 6 AM0 06/13/20 06:00 Intake Total 2200 ml Output Total 445 ml Balance 1755 ml Laboratory Data Labs 24H Laboratory Tests 2 06/13/20 06:40: Nucleated Red Blood Cells % (auto) 0.0 06/13/20 06:41: Anion Gap 8, Glomerular Filtration Rate 59.7, Calcium Level 9.6, Total Bilirubin 0.3, Aspartate Amino Transf (AST/SGOT) 18, Alanine Aminotransferase (ALT/SGPT) 12, Alkaline Phosphatase 71, Total Protein 6.6, Albumin 2.9L, Albumin/Globulin Ratio 0.8L CBC/BMP Laboratory Tests 06/13/20 06:40 06/13/20 06:41 Discharge Medications Scheduled Amlodipine Besylate (Amlodipine Besylate) 10 Mg Tablet, 10 MG PO DAILY Aspirin (Aspirin EC) 81 Mg Tablet.dr, 81 MG PO DAILY Pantoprazole Sodium (Pantoprazole Sodium) 40 Mg Tab, 40 MG PO DAILY, (Reported) Paroxetine HCl (Paroxetine HCl) 20 Mg Tab, 20 MG PO DAILY, (Reported) Simvastatin (Simvastatin) 20 Mg Tablet, 20 MG PO QHS Scheduled PRN Tramadol HCl (Tramadol HCl) 50 Mg Tablet, 50 MG PO Q8HP PRN for MODERATE/SEVERE PAIN (PS 5-10) Miscellaneous Medications [Reviewed] , (Reported) Allergies Coded Allergies: citalopram (Verified Allergy, Intermediate, 06/12/20) bee venom protein (honey bee) (Verified Allergy, Unknown, SWELLING, 06/12/20) diazepam (Verified Adverse Reaction, Intermediate, hallucinations, 06/12/20) Amelie Zapata MD Jun 13, 2020 19:48
--- NOTE | 2020-06-19 12:46 | ROOPDOC ---
[facility] Report Of Operation Report of Operation DATE OF PROCEDURE: 06/12/20 PREPROCEDURE DIAGNOSES: Right breast cancer POSTPROCEDURE DIAGNOSES: Right breast cancer PROCEDURE: right breast simple mastectomy with right sentinel lymph node biopsy SURGEON: Donaldo Hurley ANESTHESIA: general ESTIMATED BLOOD LOSS: minimal COMPLICATIONS: none REMARKS: right sentinel lymph node found, DESCRIPTION OF PROCEDURE: INDICATIONS: Ms. Grace Lutz is an 89 year old lady who was found to have large palpable mass in her right breast. Mammographic and sonographic correlates were found and were considered suspicious. 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 We discussed surgical options and patient opted for simple mastectomy without reconstruction. I gave patient an option to pursue sentinel lymph node biopsy especially that no additional incision has to be done to do biopsy. After discussing the case with her family, especially with her son Deny who is an RN, she decided to have right simple mastectomy with right sentinel lymph node biopsy. Risks and possible complications of surgical procedure including bleeding, infection and injury to surrounding structures were explained to the patient and she wished to proceed. Consent was signed. Subcutaneous heparin 5000 units was given to patient in the preop area. Lymphoscintigraphy was reviewed preoperatively and the tracer was found in the right axilla. Patient was preoperatively marked by me. DETAILS: Patient was taken to the operating room and placed supine on the operating room table. Pillow was placed under her knees. Foam was placed under her heels. A sign in was called stating patients name, date of and the procedure to be done. Preoperative antibiotics were infused. Smooth induction of general anesthesia was done. Patients hands were extended on arm rests. Care was taken not to over extend patients arms. Browne catheter was placed. Sequential compression devices were placed and assured to function correctly. Patients right breast and axilla were prepped and draped in the usual fashion. Neoprobe was used to eder the site of maximal signal in the axilla. The right breast possible tumor extension was marked on the skin using palpation. Appropriate time out was done and patients name, date of , and the procedure to be done were confirmed. Procedure was started with right breast simple mastectomy. The incision was made along the previously marked borders to achieve the scar at the inframammary fold. Subcutaneous flaps were developed using electrocautery dissection. Dissection was carried toward the inframammary fold inferiorly, toward sternum medially, toward inferior aspect of clavicle superiorly and toward the axilla laterally. Breast tissue was dissected from the muscle posteriorly and pectoralis fascia was taken with the specimen. The dissection was carried all the way to the [place] of [place] making sure that axilla is not entered prematurely. Breast specimen was marked for orientation with short, single, stitch marking superior edge of mastectomy and long, single, stitch marking lateral edge of mastectomy. The palpable mass/ cancer site was marked with double stitch. The specimen was weighted and weight of 580 grams was reported. The specimen was then placed in formaldehyde, and passed to pathology. Mastectomy cavity was irrigated and hemostasis was achieved. Next, our attention was turned toward the right axilla which was accessed from the mastectomy site. Clavipectoral fascia was opened over the site of maximum Neoprobe signal. Area of high signal was identified at the lateral border of the pectoralis major muscle in deep axilla. [place] lymph node #1 was identified and 10 second ex-vivo count was 5201. Specimens were labeled appropriately and sent to pathology. Axilla was explored for presence of any additional lymph nodes and none were identified. 10 second count of the background was 4. The axilla was irrigated and hemostasis was achieved. Next, clavipectoral fascia was closed with interrupted 3-0 Vicryl Stitches. At this point, two 15 [place] drains were placed into the mastectomy cavity and into axilla through separate stab incisions and secured at the skin with stitches. Next, pectoral and serratus plane blocks on the right side were also done with Exparel. Deep dermal sutures were placed with 2-0 Vicryl to approximate mastectomy site edges. Dermis was closed with 3-0 Vicryl. Skin was closed with 4-0 Monocryl. Surgical glue was applied to the top of the incision. Prineo skin closing system dressing was applied next to the incision. Surgical gauze was placed over the incision and the surgical bra was placed. Final instruments and sponge count were correct. Patient emerged from general anesthesia without any problems. Patient tolerated procedure well and was taken to recovery unit in stable condition. DONALDO HURLEY DO Jun 19, 2020 12:46
== END 2020-06-13 14:40 | disposition home or self-care (01) ==
LOC: M SDC 07:53 → M MS5PR 07:54 → M SDC 17:13 → M MS5PR 06-13 14:40 → M SDC 06-13 14:40
PROVIDERS: ADMIT Internal Medicine; ATTEND Internal Medicine
DX: C50.911 Malignant neoplasm of unspecified site of right female breast (principal); I10 Essential (primary) hypertension; Z86.73 Personal history of transient ischemic attack (TIA), and cerebral infarction without residual deficits; N18.30 Chronic kidney disease, stage 3 unspecified; E78.49 Other hyperlipidemia; E55.9 Vitamin D deficiency, unspecified; Z79.82 Long term (current) use of aspirin; Z91.030 Bee allergy status; D64.9 Anemia, unspecified; G25.81 Restless legs syndrome; Z85.51 Personal history of malignant neoplasm of bladder; Z87.891 Personal history of nicotine dependence; Z79.899 Other long term (current) drug therapy; Z88.8 Allergy status to other drugs, medicaments and biological substances
CPT/HCPCS: 19303; 36415; 38525; 78195; 80053; 85027; 86850; 86870; 86900; 86901; 88307; 96365; 96366; A9541; C9290; G0378; J0131; J0690; J1100; J1644; J2250; J2405; J3010

== ENCOUNTER → 2020-07-12 | Outpatient (CLI) | payer MEDICARE ==
[~2020-07-12] MED LIST changes: +ARIM1TAB5 PO; +CALC1TAB26 PO; +COVI30VI IM; -HEPARIN SOD (PORCINE) 5000UNITS/ML 1ML VIAL/SYRINGE SQ ONE; -LIDOCAINE 1% MDV 20ML VIAL SQ PRN; -LR 1,000 ML IV ONE; +TRAM50TA2 PO; -ceFAZolin SOD 2 GM in IV 1 EA IV ONE
--- NOTE | 2020-07-12 14:58 | DEXAMM ---
INDICATION: OSTEOPENIA. COMPARISON: 05/16/2015 as well as other prior exams. TECHNIQUE: Bone density was measured using dual-energy x-ray absorptiometry (DEXA). FINDINGS: AP SPINE L1-L4 BMD 0.928 g/cm2 Young Adult T-Score -2.2 Age Matched Z-Score -0.2. LT FEMUR, TOTAL BMD 0.735 g/cm2 Young Adult T-Score -2.2 Age Matched Z-Score 0.4. LT NECK BMD 0.708 g/cm2 Young Adult T-Score -2.4 Age Matched Z-Score 0.2. RT FEMUR, TOTAL BMD 0.788 g/cm2 Young Adult T-Score -1.7 Age Matched Z-Score 0.8. RT NECK BMD 0.760 g/cm2 Young Adult T-Score -2.0 Age Matched Z-Score 0.6. IMPRESSION: There is low bone density of the spine. There is low bone density of the left hip. There is low bone density of the right hip. The density of the spine has increased 18.4% since the initial exam on 11/23/2000. The density of the spine decreased 2.6% since most recent exam on 05/16/2015. The density of the left hip has decreased 3.5% since initial exam on 11/23/2000. The density of the left hip has decreased 6.8% since most recent exam on 05/16/2015. The density of the right hip has decreased 3.0% since the initial exam on 11/23/2000. The density of the right hip has decreased 4.3% since the most recent exam on 05/16/2015. FOLLOW-UP: Recommendation for the next bone density exam: 2 years. <Electronically signed by Kobe Siu > 07/12/20 [id number]
== END ==
LOC: M WHC 14:01
PROVIDERS: ATTEND Internal Medicine Hematology & Oncology
DX: M85.88 Other specified disorders of bone density and structure, other site (principal); M85.851 Other specified disorders of bone density and structure, right thigh; M85.852 Other specified disorders of bone density and structure, left thigh; C50.919 Malignant neoplasm of unspecified site of unspecified female breast

== ENCOUNTER → 2020-07-20 | Outpatient (CLI) | payer MEDICARE ==
[~2020-07-20] MED LIST changes: +GASTROGRAFIN SOLUTION 30ML (Q9963) As Ordered ONE; +ISOVUE-370 76% 100ML VIAL As Ordered ONE
--- NOTE | 2020-07-20 14:03 | REP ---
INDICATION: BREAST CA, STAGING COMPARISON: Noncontrast chest CT dated 08/04/2011 TECHNIQUE: Axial contrast enhanced images from the thoracic inlet to the upper abdomen with coronal and sagittal reformations using 75 ml Isovue 370 intravenous contrast material. This CT examination was performed using the following dose reduction techniques: Automated exposure control, adjustment of mA and/or kv according to the patient's size, and use of iterative reconstruction technique. FINDINGS: Lung winslow demonstrate chronic age-related interstitial changes. No consolidation, suspicious nodule or mass lesion. No pleural effusion. No pneumothorax. No axillary, hilar, or mediastinal adenopathy. Atherosclerotic changes to the thoracic aorta and coronary arteries noted without aortic aneurysm or cardiomegaly. No pericardial effusion. Pulmonary vasculature appears grossly normal. Musculoskeletal structures demonstrate age-related changes without acute osseous abnormality. Evidence for prior right mastectomy noted. IMPRESSION: Chronic appearing changes. No acute mediastinal or pleuroparenchymal process. No evidence for obvious metastatic disease. <Electronically signed by Ayan Baca > 07/20/20 0300
--- NOTE | 2020-07-20 14:13 | REP ---
INDICATION: BREAST CA, STAGING. COMPARISON: 02/01/2010 TECHNIQUE: Axial contrast-enhanced images from the lung bases to the pubic symphysis using 100 cc Isovue 370 intravenous contrast material. Delayed images of the abdomen along with coronal and sagittal reformations obtained. This CT examination was performed using the following dose reduction techniques: Automated exposure control, adjustment of mA and/or kv according to the patient's size, and the use of iterative reconstruction technique. FINDINGS: Liver, spleen, pancreas, gallbladder, and bilateral adrenal glands are normal. Kidneys include few benign appearing cysts measuring up to 2 cm in the right kidney and 3 cm on the left kidney. The enteric system including stomach, small, and large bowel appears normal. No evidence for obstruction or acute inflammatory process. Normal terminal ileum and cecum are identified in the right lower quadrant. Scattered diverticula noted without acute diverticulitis. Pelvis demonstrates normal bladder and age-appropriate uterus/adnexa. No ascites. No free air. No intraperitoneal or retroperitoneal adenopathy. Abdominal aorta and vasculature appear normal. Musculoskeletal structures demonstrate degenerative changes without acute osseous abnormality. IMPRESSION: No acute abdominopelvic pathology appreciated. Chronic findings as noted above. No ascites, focal inflammatory stranding, adenopathy, or further evidence to suggest metastatic disease. <Electronically signed by Ayan Baca > 07/20/20 [id number]
== END ==
LOC: M RAD 12:15
PROVIDERS: ATTEND Internal Medicine Hematology & Oncology
DX: C50.911 Malignant neoplasm of unspecified site of right female breast (principal)
CPT/HCPCS: 71260; 74177; Q9963; Q9967